=== PATIENT | female | born 1940 | race Caucasian/White ===

== ENCOUNTER 2017-09-29 22:22 | Inpatient (IN) | payer MEDICARE, OTHER ==
[~2017-09-29] VITALS: Ht 172.7 cm; Wt 97.5 kg
[~2017-09-29 22:22] MED LIST: AMARYL2 M1 PO; AMBIEN 10 MG TA10 MG PO; AMBIEN 5 MG TABL5 M1 PO; AMLODIPINE; AMLODIPINE PO; ATIVAN0.5 MG PO; CALCIUM 600 +1 EAC1 PO; CARAFATE 1 GM TA1 G1 PO; CIPRO500 MG PO; CLORAZEPATE D3.75 M1 PO; COLACE100 MG PO; COMPAZINE5 MG PO; CYMBALTA30 MG PO; DEPAKOTE 250MG250 M1 PO; DIPHENHIST50 MG PO; DIVALPROEX SOD250 M3 PO; IRON325 PO; LANTUS100 UNIT/M SUBQ; LANTUSSOLASTAR SC; LASIX 40 MG TAB40 M1 PO; LIBRAX CAPSULE1 EACH PO; LISINOPRIL10 MG PO; LOPRESSOR 50 MG50 M1 PO; LOPRESSOR50 MG PO; LYRICA 75 MG CA75 MG PO; MAG-OX 400 TAB400 M1 PO; MAG-OX 400 TAB400 MG PO; MAGNESIUM400 MG PO; METAMUCIL PAC1 UDPKT PO; METOCLOPRA10 MG/101 PO; METOCLOPRAMIDE10 MG PO; METOPROLOL; MILK OF MA2400 MG/10 PO; MIRALAX255 GM PO; MORPHINE SULFAT15 M3 PO; MS CONTIN15 MG PO; MS CONTIN30 MG PO; MULTIVITAMINS1 EAC7 PO; NEURONTIN 400400 M1; NEURONTIN 400M400 M2 PO; NEURONTIN600 MG PO; NORCO 5-325 TA1 EACH PO; NORVASC 5 MG TAB5 MG PO; NORVASC5 MG PO; NYSTATIN 1100000 U/M PO; NYSTATIN PO; OMEPRAZOLE40 MG PO; ONDANSETRON HCL4 M2 PO; OXYCODONE HCL15 MG PO; PERCOCET PO; PHENERGAN 25 MG25 M1 PO; POTASSIUM20 PO; PRINIVIL20 MG PO; REGLAN 10 MG TA10 M1; REGLAN 10 MG TA10 M1 PO; REGLAN 10 MG TA10 MG PO; ROBITUSSIN100 MG/53 PO; TOPROL XL100 MG PO; TRAMADOL 50 MG50 MG PO; TRANSDERM-SCO1 PATC1 TD; TRANSDERM-SCO1 PATCH TD; TRILEPTAL150 MG PO; VIOKASE; ZOFRAN ODT4 MG PO; ZOFRAN4 MG PO
[2017-09-29 22:24] VITALS: BP 129/91
[2017-09-29 22:56] LABS: HEMATOCRIT 41.5 % (37.0-47.0); HEMOGLOBIN 13.3 gm/dL (12.0-15.0); MCH 28.5 pg (26.0-34.0); MCHC 32.1 g/dL (28.0-37.0); MCV 88.8 fL (80.0-100.0); MPV 7.1 fl. (7.2-11.1); NUCLEATED RBCS 0 /100WBC; PLATELET COUNT* 409 thou/uL (150-400); RBC 4.68 mil/uL (4.20-5.00); RDW-CV 15.5 % (10.5-14.5); WBC 16.8 thou/uL (4.0-11.0)
[2017-09-29 23:03] LABS: URINE BILIRUBIN NEGATIVE (Negative); URINE BLOOD NEGATIVE (Negative); URINE CLARITY CLEAR; URINE COLOR YELLOW; URINE GLUCOSE-RANDOM NEGATIVE (Negative); URINE KETONES NEGATIVE (Negative); URINE LEUKOCYTES-REFLEX NEGATIVE (Negative); URINE NITRITE-REFLEX NEGATIVE (Negative); URINE PROTEIN TRACE (Negative); URINE SPECIFIC GRAVITY 1.015 (1.005-1.030); URINE UROBILINOGEN 0.2 E.U./dl (0.2-1.0)
[2017-09-29 23:08] LABS: ANION GAP 12 mmol/L (7-16); BUN 17 mg/dL (7-18); CALCIUM 8.9 mg/dL (8.5-10.1); CHLORIDE 103 mmol/L (98-107); CO2 25 mmol/L (21-32); GLUCOSE 207 mg/dL (70-99); SODIUM 140 mmol/L (136-145)
[2017-09-29 23:11] LABS: POTASSIUM 2.2 mmol/L (3.5-5.1)
[2017-09-29 23:20] LABS: ALBUMIN 3.3 g/dL (3.4-5.0); ALKALINE PHOSPHATASE 111 U/L (46-116); LIPASE 85 U/L (73-393); SGOT 10 U/L (15-37); SGPT 12 U/L (30-65); TOTAL BILIRUBIN 0.1 mg/dL (<0.1-1.0); TROPONIN-I LEVEL <0.06 ng/mL (<0.06)
[2017-09-29 23:34] LABS: ABSOLUTE LYMPHOCYTES 3.7 thou/uL (0.8-5.3); ABSOLUTE MONOCYTES 1.7 thou/uL (0.0-1.2); ABSOLUTE NEUTROPHILS 11.4 thou/uL (1.6-8.1); ANISOCYTOSIS 1+; PLATELET ESTIMATE INCREASED; POIKILOCYTOSIS 1+
[2017-09-29 23:35] LABS: TOXIC GRANULATION 1+
[2017-09-30] VITALS (12 sets, daily range): BP systolic 95–166; BP diastolic 49–76
[2017-09-30 04:47] LABS: ABSOLUTE EOSINOPHILS 0.1 thou/uL (0.0-0.7); ABSOLUTE LYMPHOCYTES 2.6 thou/uL (0.8-5.3); ABSOLUTE MONOCYTES 1.2 thou/uL (0.0-1.2); ABSOLUTE NEUTROPHILS 12.5 thou/uL (1.6-8.1); BASOPHILS 0.3 %; EOSINOPHILS 0.6 %; HEMATOCRIT 38.2 % (37.0-47.0); HEMOGLOBIN 12.1 gm/dL (12.0-15.0); MCH 28.4 pg (26.0-34.0); MCHC 31.6 g/dL (28.0-37.0); MONOCYTES 7.5 %; MPV 7.3 fl. (7.2-11.1); NUCLEATED RBCS 0 /100WBC; PLATELET COUNT* 398 thou/uL (150-400); POLYS 75.6 %; RBC 4.24 mil/uL (4.20-5.00); RDW-CV 15.8 % (10.5-14.5); WBC 16.5 thou/uL (4.0-11.0)
--- NOTE | 2017-09-30 05:00 | NUR ---
Son notified of pts being in hospital, given grandsons number to call. Message left.
[2017-09-30 05:17] LABS: CALCIUM 8.1 mg/dL (8.5-10.1); CREATININE 0.9 mg/dL (0.6-1.3); TOTAL BILIRUBIN 0.1 mg/dL (<0.1-1.0)
[2017-09-30 05:26] LABS: POTASSIUM 2.8 mmol/L (3.5-5.1)
--- NOTE | 2017-09-30 05:29 | NUR ---
GERARD DIANA (SON) [phone] JACK DIANA (GRANDSON) [phone]
[2017-09-30 10:12] LABS: BE -12.2 mmol/L (-2 to +3); HCO3 15.4 mmol/L (22.0-26.0); PCO2 41.3 mmHg (35.0-45.0); PO2 153.6 mmHg (75.0-100.0); pH 7.189 (7.340-7.450)
[2017-09-30 13:18] LABS: BE -11.1 mmol/L (-2 to +3); HCO3 14.3 mmol/L (22.0-26.0); PCO2 30.7 mmHg (35.0-45.0)
[2017-09-30 13:20] LABS: PO2 140.5 mmHg (75.0-100.0); pH 7.286 (7.340-7.450)
--- NOTE | 2017-09-30 17:08 | 2DMMODE ---
[place] [address] 2 D/M-MODE ECHOCARDIOGRAM Name: LEBRONBROOK Room: [facility]#: [id number] Admission: 09/30/17 Attend Phys: Yoseph Fritz Discharge: Date of : 44 Date of Service: 09/30/17 1708 Report #: [id number] THIS REPORT FOR: //name// APPROVED REPORT Study performed: 09/30/2017 15:53:21 EXAM: Comprehensive 2D, Doppler, and color-flow Echocardiogram Patient Location: In-Patient Room #: [facility] Status: routine BSA: 2.04 HR: 83 bpm BP: 105/57 mmHg Rhythm: NSR Other Information Technically limited study due to post operative dressings, body habitus, inability to position patient, patient on ventilator. Indications Bradycardia 2D Dimensions LVEF(%): 79.43 (>50%) IVSd: 12.20 (7-11mm) LVOT Diam: 19.91 (18-24mm) LVDd: 36.00 mm PWd: 9.63 (7-11mm) Ascending Ao: 30.73 (22-36mm) LVDs: 19.02 (25-40mm) Aortic Root: 31.67 mm Ortiz's LVEF: 79.43 % Aortic Valve AoV Peak Slava.: 1.73 m/s AO Peak Gr.: 11.96 mmHg LVOT Max P.33 mmHg AO Mean Gr.: 7.27 mmHg LVOT Mean P.72 mmHg LVOT Max V: 1.61 m/s AO V2 VTI: 26.78 cm LVOT Mean V: 1.12 m/s EMILIANO (VTI): 3.19 cm2 LVOT V1 VTI: 27.45 cm Pulmonary Valve PV Peak Slava.: 0.94 m/s PV Peak Gr.: 3.52 [place] [address] 2 D/M-MODE ECHOCARDIOGRAM Name: LEBRONBROOK J Room: [address] IN .R.#: [id number] Admission: 09/30/17 Attend Phys: Yoseph Fritz Discharge: Date of : 44 Date of Service: 09/30/17 1708 Report #: [id number] Peak Gr.: 3.82 mmHg Left Ventricle The left ventricle is normal size. There is normal LV segmental wall motion. There is normal left ventricular wall thickness. Left ventricular systolic function is normal. LVEF is 65-70%. Grade I - abnormal relaxation pattern. Right Ventricle Right ventricle is moderately dilated. The right ventricular systolic function is normal. Atria The left atrium size is normal. Right atrium is moderately dilated. Aortic Valve The aortic valve is normal in structure. No aortic regurgitation is present. There is no aortic valvular stenosis. Mitral Valve The mitral valve is normal in structure. There is no mitral valve regurgitation noted. No evidence of mitral valve stenosis. Tricuspid Valve The tricuspid valve is normal in structure. Trace tricuspid regurgitation. Pulmonic Valve The pulmonary valve is normal in structure. There is no pulmonic valvular regurgitation. Great Vessels The aortic root is normal in size. IVC is normal in size and collapses with >50% inspiration Pericardium There is no pericardial effusion. <Conclusion> The left ventricle is normal size. There is normal left ventricular wall thickness. Left ventricular systolic function is normal. LVEF is 65-70%. Grade I - [place] [address] 2 D/M-MODE ECHOCARDIOGRAM Name: BROOK DIANA Room: [address] IN [facility]#: [id number] Admission: 09/30/17 Attend Phys: Yoseph Fritz Discharge: Date of : 44 Date of Service: 09/30/171707 Report #: [id number] Right atrium is moderately dilated. Right ventricle is moderately dilated. <ELECTRONICALLY SIGNED> By: Jaciel Padilla MD, [facility] 09/30/171707 07 1708 Jaciel Padilla MD, FACC /INF
--- NOTE | 2017-09-30 17:29 | EKG ---
[place] [address] ELECTROCARDIOGRAM REPORT Name: BROOK DIANA Room: [address] ADM IN .R.#: [id number] Admission: 09/30/17 Attend Phys: Luis Gant Discharge: Date of : 44 Report #: [id number] THIS REPORT FOR: //name// [facility] ED Test Date: 2017-09-29 Test Time: 22:54:25 Pat Name: BROOKRICHIE DIANA Department: Room: [facility] Gender: F Steam Oven Operator: PRUDENCE Cerna : 1940 Requested By: Arpita Kirkpatrick Order Number: [id number] MD: Jaciel Padilla Measurements Intervals [place] Rate: 73 P: 35 MD: 151 QRS: -3 QRSD: 94 T: 179 QT: 371 QTc: 409 Interpretive Statements Sinus rhythm RSR' in V1 or V2, right VCD or RVH LVH with secondary repolarization abnormality Compared to ECG 06/03/2017 06:54:30 Right ventricular hypertrophy now present RSR' in V1 or V2 now present Left ventricular hypertrophy now present Electronically Signed On 09-30-2017 17:28:59 RESCUE BOAT OPERATOR by Jaciel Padilla [email or web address] <ELECTRONICALLY SIGNED> By: Jaciel Padilla MD, FACC 09/30/17 1728 [id number] Jaciel Padilla MD, FACC /EPI
--- NOTE | 2017-09-30 17:29 | EKG ---
[place] [address] ELECTROCARDIOGRAM REPORT Name: BROOK DIANA Room: [address] ADM IN .R.#: [id number] Admission: 09/30/17 Attend Phys: Luis Gant Discharge: Date of : 44 Report #: [id number] THIS REPORT FOR: //name// [facility] ED Test Date: 2017-09-30 Test Time: 02:03:47 Pat Name: BROOK DIANA Department: Room: [facility] Gender: F It Field Technician: PRUDENCE Cerna : 1940 Requested By: Arpita Kirkpatrick Order Number: [id number] Deric MD: Jaciel Padilla Measurements Intervals [place] Rate: 79 P: 1 HI: 137 QRS: -3 QRSD: 81 T: 183 QT: 403 QTc: 463 Interpretive Statements Sinus rhythm RSR' in V1 or V2, probably normal variant LVH with secondary repolarization abnormality Compared to ECG 06/03/2017 06:54:30 RSR' in V1 or V2 now present Left ventricular hypertrophy now present Electronically Signed On 09-30-2017 17:29:47 APPRENTICESHIP TRAINING REPRESENTATIVE by Jaciel Padilla [email or web address] <ELECTRONICALLY SIGNED> By: Jaciel Padilla MD, FAC 09/30/17 1729 2 2 Jaciel Padilla MD, [facility] /EPI
[2017-09-30 17:30] LABS: CALCIUM 7.6 mg/dL (8.5-10.1); CREATININE 1.2 mg/dL (0.6-1.3); MAGNESIUM 1.1 mg/dL (1.8-2.4)
[2017-09-30 17:33] LABS: POTASSIUM 2.8 mmol/L (3.5-5.1)
--- NOTE | 2017-09-30 19:20 | NUR ---
PT RESTING WELL ON VENT. FIO2 TITRATED TO 25%.ABD BINDER EMIANS IN PLACE WITH NO SHADOWING NOTED. POTASSIUM AND MAGNESIUM BEING REPLACED PER PROTOCOL. PT TURNED THROUGH SHIFT. FREQUENT ORAL CARE GIVEN.PT IS PROGRESSING TOWARDS GOALS.SHIFT REPORT GIVEN.
[2017-10-01] VITALS (11 sets, daily range): BP systolic 98–202; BP diastolic 39–111
[2017-10-01 04:44] LABS: ABSOLUTE LYMPHOCYTES 3.2 thou/uL (0.8-5.3); ABSOLUTE MONOCYTES 1.6 thou/uL (0.0-1.2); ABSOLUTE NEUTROPHILS 13.9 thou/uL (1.6-8.1); BASOPHILS 0.2 %; EOSINOPHILS 0.2 %; HEMATOCRIT 36.8 % (37.0-47.0); HEMOGLOBIN 11.5 gm/dL (12.0-15.0); LYMPHOCYTES 17.1 %; MCH 28.7 pg (26.0-34.0); MCHC 31.3 g/dL (28.0-37.0); MCV 91.5 fL (80.0-100.0); MONOCYTES 8.4 %; MPV 7.7 fl. (7.2-11.1); NUCLEATED RBCS 0 /100WBC; PLATELET COUNT* 327 thou/uL (150-400); POLYS 74.1 %; RBC 4.02 mil/uL (4.20-5.00); RDW-CV 15.8 % (10.5-14.5); WBC 18.8 thou/uL (4.0-11.0)
[2017-10-01 05:08] LABS: CALCIUM 7.8 mg/dL (8.5-10.1)
[2017-10-01 05:27] LABS: POTASSIUM 4.3 mmol/L (3.5-5.1)
--- NOTE | 2017-10-01 06:36 | NUR ---
PATIENT SLOWLY PROGRESSING TOWARDS GOALS. ON PROPOFOL GTT. BP HAVE BEEN SOFT. NSR. RR, HR WNL. PT IS RESPONSIVE TO NAME, DOES OPEN EYES. ELECTROLYTE REPLACEMENT COMPLETED. WEANING TRIAL IN A.M POSSIBLE EXTUBATION TODAY. WILL CONTINUE TO MONITOR CLOSELY.
[2017-10-01 07:19] LABS: BE -8.5 mmol/L (-2 to +3); PCO2 29.9 mmHg (35.0-45.0); PO2 88.4 mmHg (75.0-100.0); pH 7.345 (7.340-7.450)
--- NOTE | 2017-10-01 10:30 | NUR ---
PT ADMITTED TO ICU ON VENT AFTER EMERGENCY SURGERY YESTERDAY MORNING. PT REMAINS ON VENT, DIDN'T DO WELL WITH WEANING TRIAL THIS MORNING SECONDARY TO PAIN. WILL TRY ANOTHER WEANING TRIAL LATER TODAY. NO FAMILY HERE AT THIS TIME, NOT SURE AOBUT PT'S LIVING SITUATION.
--- NOTE | 2017-10-01 11:22 | OP ---
[facility] [address] [place] [address] OPERATIVE REPORT Name: LEBRONBROOK Room: [address] IN M.R.#: [id number] Admission: 09/30/17 Attend Phys: Luis Gant Discharge: Date of : 44 Report #: [id number] THIS REPORT FOR: //name// CC: Bon Fritz DATE OF SERVICE: 09/30/2017 PREOPERATIVE DIAGNOSIS: Internal hernia. POSTOPERATIVE DIAGNOSIS: Internal hernia. PROCEDURE: 1. Exploratory laparotomy. 2. Reduction of internal hernia. 3. Extensive lysis of adhesions for 45 minutes. SURGEON: Tisha Alexandra MD. INSPECTOR WATCH TRAIN: 1. Joseph Blanco DO. 2. Gregory Pimentel DO. ESTIMATED BLOOD LOSS: 10 mL. COMPLICATIONS: None. FINDINGS: Internal hernia of small bowel beneath antecolic gastrojejunostomy limb. SPECIMENS: None. COMPLICATIONS: None. ANESTHESIA: GET. DESCRIPTION OF PROCEDURE: Fully informed consent obtained preoperatively. Full discussion of risks, benefits, alternatives, questions answered. The patient was alert and oriented and able to understand informed consent in full. She understood all risks up to and including catastrophic complications up to including . She was taken to the operating room. Timeout was performed with all in agreement. Began with midline laparotomy through prior laparotomy incision above the umbilicus and used cautery to dissect down through skin and subcutaneous tissue and fat. Split in the fascia was elevated. I entered sharply into the abdomen. There was no injury down the underlying bowel. The [address] [place] [address] OPERATIVE REPORT Name: LEBRONBROOK J Room: [facility]- ADM IN M.R.#: [id number] Admission: 09/30/17 Attend Phys: Luis Gant Discharge: Date of : 44 Report #: [id number] fascia was extended cranially and inferiorly. Of note, there was a significant amount of adhesions. Using a combination of Metzenbaum scissors and cautery, adhesions were taken down from the anterior abdominal wall to the bowel and interloop adhesions for approximately 45 minutes. Following this, there did appear to be an area of small bowel, which had twisted under the gastrojejunostomy limb from her previous procedure and this was reduced out from this mesenteric defect. I inspected the bowel closely and all appeared viable. Next, I used 3-0 Vicryl to approximate the small bowel down to the retroperitoneum as well as to adjacent small bowel using serosal bite to close the mesenteric defect under the gastrojejunostomy. I next ran the bowel from this area all the way up to the cecum. Bowel appeared to be healthy and viable. There was no evidence of any serosal injuries or ischemia, was replaced back in the abdomen and I saw no other alternative pathologies. Once a separate film was placed middle of the wound, an 0 PDS was brought from cranial and caudal portions of the incision and brought securely in the middle of the abdomen. Wound was irrigated. A 3-0 Vicryl was used to approximate deep dermal. Staple used to close the skin. Sterile dressings applied. Sponge, needle, instrument counts correct x 2. <ELECTRONICALLY SIGNED> By: Tisha Alexandra MD 10/01/17 1122 [id number] Alexandra MD /nt
[2017-10-01 11:47] LABS: ALBUMIN 2.3 g/dL (3.4-5.0); POTASSIUM 4.4 mmol/L (3.5-5.1); TOTAL BILIRUBIN 0.3 mg/dL (<0.1-1.0); TOTAL PROTEIN 5.8 g/dL (6.4-8.2)
[2017-10-01 13:54] LABS: HCO3 16.3 mmol/L (22.0-26.0); PCO2 33.3 mmHg (35.0-45.0); PO2 95.6 mmHg (75.0-100.0); pH 7.307 (7.340-7.450)
--- NOTE | 2017-10-01 14:21 | NUR ---
1400 PT EXTUBATED AND PLACED ON 6L NC.
--- NOTE | 2017-10-01 14:22 | NUR ---
DR ROLAND AT BEDSIDE FOR PLACEMENT OF CENTRAL LINE.
[2017-10-01] MEDS ORDERED: ACETAMINOPHEN650 M5 RECTAL (15:01)
[2017-10-01] MEDS ORDERED: ACETYLCYST200 MG/1 M INH (15:03)
[2017-10-01] MEDS ORDERED: ALBUTEROL2.5 MG/31 INH (15:03)
[2017-10-01] MEDS ORDERED: BISACODYL SUPP10 MG RECTAL (15:04)
[2017-10-01] MEDS ORDERED: BROVANA15 MCG/2 M INH (15:06)
[2017-10-01] MEDS ORDERED: CARDIZEM60 MG PER TUBE (15:08)
[2017-10-01] MEDS ORDERED: CLARITIN10 MG PO (15:09)
[2017-10-01] MEDS ORDERED: DEXTROSE 10%-W250 ML IV (15:12)
[2017-10-01] MEDS ORDERED: DUONEB 2.5-0.5 M3 ML INH (15:14)
[2017-10-01] MEDS ORDERED: FERREX 150 PLU1 EAC1 PO (15:16)
[2017-10-01] MEDS ORDERED: GLUCAGON HCL1 MG IM (15:19)
[2017-10-01] MEDS ORDERED: GLUCOTROL5 MG PO (15:20)
[2017-10-01] MEDS ORDERED: HUMALOG100 UNIT/1 SUBQ (15:22)
[2017-10-01] MEDS ORDERED: HYDROCODONE-AP1 EAC6 PO (15:23)
[2017-10-01] MEDS ORDERED: LEVEMIR SUBQ (15:24)
[2017-10-01] MEDS ORDERED: ATORVASTATIN CA40 MG PO (15:26)
[2017-10-01] MEDS ORDERED: MILK OF MA2400 MG/10 PO (15:27)
[2017-10-01] MEDS ORDERED: NITROGLYCERIN0.4 MG SUBLING (15:28)
[2017-10-01] MEDS ORDERED: PREDNISONE 20 M20 MG PER TUBE (15:30)
[2017-10-01] MEDS ORDERED: PHENERGAN 25 MG25 M1 PO (15:32)
[2017-10-01] MEDS ORDERED: PROTONIX40 M1 PO (15:32)
[2017-10-01] MEDS ORDERED: PULMICORT0.5 MG/2 M INH (15:34)
[2017-10-01] MEDS ORDERED: REGLAN10 MG PO (15:35)
[2017-10-01] MEDS ORDERED: SENOKOT8.6 MG PO (15:36)
[2017-10-01] MEDS ORDERED: SINGULAIR 10 MG10 M1 PER TUBE (15:37)
[2017-10-01] MEDS ORDERED: ZOFRAN ODT4 MG DISSOLVE (15:50)
[2017-10-01 18:02] LABS: APTT 32.5 Seconds (25.0-31.3); INR 1.1; PROTIME 11.1 Seconds (9.20-11.50)
--- NOTE | 2017-10-01 18:25 | NUR ---
assessment and vs obtained through out the day. switch operator on and tracing sr. see note for extubation. at 1815 pt became diaphoretic, tachy and bp was high. lung sounds very course. bi pap placed and stat cxr was obtained. will con't to monitor.
--- NOTE | 2017-10-01 18:45 | NUR ---
GAVE BETTE REPORT AT [facility]. PT IS TO GO TO [facility] 408. [facility] WAS NOTIFIED.
--- NOTE | 2017-10-01 20:00 | NUR ---
ASSUMED CARE AT 1900. PATIENT IS ON VENT. FAMILY IN ROOM. IS NOW COMFORT CARE. WAITING ON REST OF FAMILY TO ARRIVE BEFORE WE EXTUBATE. FAMILY HAS NO CURRENT CONCERNS AT THIS TIME. WILL CONTINUE TO WORK WITH FAMILY AND PROVIDE MAXIMUM COMFORT FOR PATIENT.
[2017-10-02] VITALS (8 sets, daily range): BP systolic 107–142; BP diastolic 42–89
[2017-10-02 05:38] LABS: HEMATOCRIT 31.1 % (37.0-47.0); HEMOGLOBIN 9.9 gm/dL (12.0-15.0); MCH 28.7 pg (26.0-34.0); MCHC 31.9 g/dL (28.0-37.0); MPV 7.9 fl. (7.2-11.1); RBC 3.46 mil/uL (4.20-5.00); RDW-CV 15.6 % (10.5-14.5); WBC 15.7 thou/uL (4.0-11.0)
--- NOTE | 2017-10-02 05:42 | NUR ---
PATIENT SLOWLY PROGRESSING TOWARDS GOALS. PATIENT IS ORIENT TO SELF, SITUATION, PLACE, GETS CONFUSED WITH DAY AND MONTH BUT AFTER GIVEN TIME PT REORIENTS SELF. PT ON BIPAP D/T DECREASE IN O2. TOLERATED HIGH FLOW NC LAST NIGHT FOR A WHILE PLACED BACK ON WHEN SHE WAS READY TO SLEEP. PT RECEIVED LASIX LAST NIGHT PER DOC ORDERS UO WAS 2150. SOUNDS LESS COARSE, EDEMA IN FEET HAS DECREASED. PT IS CURRENTLY SLEEPING NO CONCERNS AT THE MOMENT. CALL LIGHT WITHIN REACH, FALL PRECAUTIONS IN PLACE, BED TO LOWEST POSITION.
--- NOTE | 2017-10-02 17:51 | NUR ---
PATIENT PROGRESSING TOWARDS GOALS. O2 TITRATED TO 2L NC, SAT AT 100%. COULD POTENTIALLY COME OFF O2, BUT LEFT ON FOR COMFORT PATIENT FEELS IF SHE CANNOT BREATHE R/T CONGESTION IN THROAT. ENCOURAGED TO COUGH AND DEEP BREATHE MULTIPLE TIMES THIS SHIFT. HAVING SOME PRODUCTIVE CLEAR/THIN SPUTUM. OTHER VITALS REMAINED 2NL. TRACED NSR ON LOCK MASTER THROUGHOUT SHIFT. PATIENT UP IN CHAIR X1 FOR DURATION OF [address] BINDER [address] PL[address] WHEN TRANSFERING. DID TRANSFER WITH MINIMAL ASSIST, BUT COMPLAINS OF INCREASED PAIN. PAIN RATED AT 7-10 THROUGHOUT SHIFT CONSISTANTLY, EVEN WHEN APPEARING CALM. PATIENT HAS VERY ANXIOUS/FUSSY BEHAVIOR CONSISTANTLY, APPEARS TO BE BASELINE. APOLOGIZES FREQUENTLY WHEN NOT WARRENTED. RICHARD REMAINS IN PLACE TO DEPENDENT DRAINAGE. REFER TO I&O DOCUMENTATION. SALINE LOCKED RIGHT IJ CENTRAL LINE. FLUSHES IN ALL THREE PORTS ADEQUATELY. PERIPHERALS DC'D BEFORE TRANSFER UPSTAIRS. ALL BELONGINGS TAKEN WITH PATIENT INCLUDING CLOTHES AND THINGS ACQUIRED IN HOSPITAL. PATIENT TRANSFERED BY WHEELCHAIR WITH TWO M/S INTERIOR DESIGN PROJECT MANAGER AT 1750.
--- NOTE | 2017-10-02 18:36 | NUR ---
PATIENT TRANSFERRED UP FROM THE ICU AROUND 1800 IN STABLE CONDITION. PATIENT ORIENTED TO ROOM. BED ALARM ON, WILL CONTINUE TO MONITOR.
[2017-10-03 03:59] VITALS: BP 168/72
[2017-10-03 04:39] LABS: ABSOLUTE BASOPHILS 0.3 thou/uL (0.0-0.2); ABSOLUTE EOSINOPHILS 0.3 thou/uL (0.0-0.7); ABSOLUTE LYMPHOCYTES 2.6 thou/uL (0.8-5.3); ABSOLUTE MONOCYTES 0.7 thou/uL (0.0-1.2); ABSOLUTE NEUTROPHILS 7.2 thou/uL (1.6-8.1); BASOPHILS 2.6 %; EOSINOPHILS 2.3 %; HEMATOCRIT 30.5 % (37.0-47.0); HEMOGLOBIN 9.7 gm/dL (12.0-15.0); LYMPHOCYTES 23.9 %; MCH 28.6 pg (26.0-34.0); MCHC 31.8 g/dL (28.0-37.0); MCV 89.9 fL (80.0-100.0); MONOCYTES 5.9 %; MPV 8.2 fl. (7.2-11.1); NUCLEATED RBCS 0 /100WBC; PLATELET COUNT* 265 thou/uL (150-400); POLYS 65.3 %; RDW-CV 15.6 % (10.5-14.5)
[2017-10-03 04:48] LABS: CALCIUM 8.1 mg/dL (8.5-10.1); CREATININE 0.6 mg/dL (0.6-1.3)
--- NOTE | 2017-10-03 06:21 | NUR ---
PT SLEPT ON AND OFF THROUGH THE NIGHT. ASSESSMENT DOCUMENTED. MEDS GIVEN PER E-NOV. PT REPORTED ABDOMINAL PAIN. PAIN MEDS GIVEN PER E-MAR. TELE MONITOR IN PLACE. READING SR. IJ FLUSHES AND DRAWS. NEW INTERDRY PLACED. WILL CONTINUE TO MONITOR.
[2017-10-03 08:00] VITALS: BP 158/74
[2017-10-03 12:13] VITALS: BP 128/83
[2017-10-03 16:01] VITALS: BP 192/97
[2017-10-03 16:17] VITALS: BP 177/74
[2017-10-03 20:00] VITALS: BP 176/75
--- NOTE | 2017-10-03 20:02 | NUR ---
PATIENT RESTING IN BED. PATIENT HAS HAD COMPAINTS OF ABDOMINAL PAIN TREATED ADEQUATELY WITH HYDROCODONE. PATIENT HAS HAD COMPLAINTS OF NAUSEA TREATED ADEQUATLY WITH ZOFRAN. PATIENT DID REFUSE DINNER THIS EVENING. PATIENT ENCOURAGED TO TAKE MORE PO FLUIDS. MIDLINE INCISION IS APPROXIMATED WELL WITH NO DRAINAGE, DRESSING CHANGED THIS AM. PATIENT DENIES ANY NEEDS AT THIS TIME. WILL CONTINUE TO MONITOR.
[2017-10-04 00:06] VITALS: BP 167/77
[2017-10-04 01:45] LABS: ABSOLUTE EOSINOPHILS 0.2 thou/uL (0.0-0.7); ABSOLUTE LYMPHOCYTES 2.3 thou/uL (0.8-5.3); ABSOLUTE MONOCYTES 0.6 thou/uL (0.0-1.2); BASOPHILS 0.5 %; EOSINOPHILS 2.3 %; HEMATOCRIT 33.3 % (37.0-47.0); HEMOGLOBIN 10.8 gm/dL (12.0-15.0); MCH 28.8 pg (26.0-34.0); MCHC 32.4 g/dL (28.0-37.0); MCV 89.1 fL (80.0-100.0); MONOCYTES 6.3 %; MPV 7.7 fl. (7.2-11.1); NUCLEATED RBCS 0 /100WBC; PLATELET COUNT* 284 thou/uL (150-400); POLYS 65.9 %; RBC 3.74 mil/uL (4.20-5.00); RDW-CV 15.6 % (10.5-14.5); WBC 9.1 thou/uL (4.0-11.0)
[2017-10-04 02:10] LABS: CALCIUM 8.7 mg/dL (8.5-10.1); CREATININE 0.5 mg/dL (0.6-1.3); POTASSIUM 3.9 mmol/L (3.5-5.1)
[2017-10-04 04:34] VITALS: BP 186/86
--- NOTE | 2017-10-04 05:49 | NUR ---
REMAINS ON BEDREST. HAS DRY DRESSING OVER MIDLINE INCISION. REFUSED ABDOMINAL BINDER. REMAINS ON HEART MONITOR. LUNG SOUNDS REMAIN DIMINISHED. HAS RICHARD CATHETER PATENT WITH CLEAR YELLOW URINE. IV PAIN MEDICATION HELPFUL WITH PAIN. NO C/O N/V THIS SHIFT. CALL LIGHT WITHIN REACH.
[2017-10-04 08:15] VITALS: BP 157/93
[2017-10-04 12:00] VITALS: BP 153/92
--- NOTE | 2017-10-04 12:02 | NUR ---
INITIAL ASSESSMENT: Pt evaluated for d/c planning needs. Reviewed chart and spoke with nurse and pt. Pt states she lives alone in house and has good friends who assist with grocery shopping and errands. Pt said she has a walker at home, but she does not use it. Pt said she has been to SNF in the past, and they did not give her the insulin she required, so she will not go to SNF on d/c. Also suggested inpatient rehab, and pt states she will go home on d/c from hospital. Pt said her friend will be able to stay with her on d/c. Will remain available to assist as needed.
[2017-10-04 16:56] VITALS: BP 130/64
--- NOTE | 2017-10-04 17:40 | NUR ---
PATIENT HAS BEEN A/O X 4 THIS SHIFT. CONTINUES ON ELECTROMECHANICAL EQUIPMENT TESTER, TRACING NSR. PATIENT HAS BEEN MEDICATED FOR ABDOMINAL PAIN X 2 WITH ORAL PAIN MEDS. NAUSEATED THROUGHOUT THE SHIFT, RELIEVED WITH IV ZOFRAN. RIGHT IJ PATENT AND ASPIRATES BLOOD EASILY. PATIENT NEEDED MUCH ENCOURAGEMENT TO TURN AND TO GET OUT OF BED THIS SHIFT. PATIENT DID SIT UP IN THE CHAIR FOR LUNCH. PATIENT'S APPETITE POOR THIS SHIFT. PATIENT DID DRINK BOOST THIS AFTERNOON. BLOOD SUGARS MONITORED THIS SHIFT. PATIENT DID WORK WITH PT/OT THIS SHIFT AFTER MUCH ENCOURAGEMENT. PATIENT'S RICHARD PATENT. PATIENT'S MIDLINE INCISION CLEAN, DRY AND INTACT, NO SHADOWING NOTED. REFUSING SCDS. PATIENT LABILE WITH EMOTIONS THIS SHIFT, CAN BE RUDE AND INAPPROPRIATE AT TIMES AND THEN EXTREMELY APOLOGETIC WITH THE STAFF. FALL PRECAUTIONS IN PLACE. HOURLY ROUNDING COMPLETED. CALL LIGHT WITHIN REACH. WILL CONTINUE WITH PLAN OF CARE.
[2017-10-04 19:45] VITALS: BP 125/66
[2017-10-05] VITALS: BP 154/86
[2017-10-05 03:48] VITALS: BP 139/71
[2017-10-05 03:55] LABS: CALCIUM 8.5 mg/dL (8.5-10.1); CREATININE 0.6 mg/dL (0.6-1.3); POTASSIUM 3.9 mmol/L (3.5-5.1)
--- NOTE | 2017-10-05 05:56 | NUR ---
PT SLEPT MOST OF SHIFT. ASSESSMENT DOCUMENTED. MEDS GIVEN PER E-NOV. IJ FLUSHES AND DRAWS. PT KEPT ABDOMINAL BINDER ON THIS SHIFT. PT REPORTED PAIN, PAIN MEDS GIVEN PER E-NOV. PT REPOSITIONED THROUGH NIGHT. NO CONCERNS AT THIS TIME, WILL CONTINUE TO MONITOR.
[2017-10-05 08:00] VITALS: BP 143/72
[2017-10-05 12:00] VITALS: BP 136/73
--- NOTE | 2017-10-05 15:02 | NUR ---
PT UP IN CHAIR WITH SBA USING GAIT BELT. PT DOES NOT WANT TO USE WALKER. PT AGREED TO BATH SITTING IN CHAIR. PT HAS REDNESS AND STRONG YEAST SMELL UNDER BOTH BREASTS AND UNDER PANUS, WORSE ON R THAN L. PT CLEANED WITH SOAP AND WATER, DRIED WITH TOWEL COMPLETELY AND INTERDRY APPLIED TO FOLDS. OPEN SORE AND REDNESS NOTED ON BUTTOCKS, BARRIER CREAM APPLIED. RICHARD REMOVED. PT ENCOURAGED TO BE OOB LONG TOLERATED. BANDAGE TO MIDLINE ABD INCISION CDI. PT CONTINUES TO C/O PAIN, DESPITE PAIN MEDICATIONS GIVEN. ZOFRAN GIVEN FOR NAUSEA. PT RUDE AND AGITATED THIS AM DURING ASSESSMENT, BUT HAS SINCE APOLOGIZED AND BECOMES TEARFUL AND WHIMPERS WHEN NURSE ENTERS ROOM. PT WILL ALSO SMILE AND JOKE WITH NURSE DURING INTERVENTIONS. PT ABLE TO MAKE NEEDS KNOWN, CALL LIGHT IN REACH
[2017-10-05 19:30] VITALS: BP 144/117
[2017-10-06] VITALS: BP 114/61
[2017-10-06 04:00] VITALS: BP 127/63
--- NOTE | 2017-10-06 05:18 | NUR ---
PT SLEPT MOST OF SHIFT. ASSESSMENT DOCUMENTED. MEDS GIVEN PER E-MAR. PT REPORTED PAIN AND NAUSEA. PAIN AND NAUSEA MEDS GIVEN PER E-NOV. IJ PATENT. PT UP TO BSC ONCE THIS SHIFT. NO CONCERNS AT THIS TIME, WILL CONTINUE TO MONITOR.
[2017-10-06 07:40] VITALS: BP 134/68
[2017-10-06 10:32] LABS: ABSOLUTE BASOPHILS 0.1 thou/uL (0.0-0.2); ABSOLUTE EOSINOPHILS 0.2 thou/uL (0.0-0.7); ABSOLUTE LYMPHOCYTES 2.8 thou/uL (0.8-5.3); ABSOLUTE MONOCYTES 0.7 thou/uL (0.0-1.2); BASOPHILS 0.8 %; EOSINOPHILS 2.1 %; HEMATOCRIT 35.2 % (37.0-47.0); HEMOGLOBIN 11.4 gm/dL (12.0-15.0); LYMPHOCYTES 23.6 %; MCH 28.9 pg (26.0-34.0); MCHC 32.5 g/dL (28.0-37.0); MCV 89.1 fL (80.0-100.0); MONOCYTES 5.7 %; MPV 8.1 fl. (7.2-11.1); NUCLEATED RBCS 0 /100WBC; PLATELET COUNT* 303 thou/uL (150-400); POLYS 67.8 %; RBC 3.95 mil/uL (4.20-5.00); RDW-CV 15.1 % (10.5-14.5); WBC 11.8 thou/uL (4.0-11.0)
[2017-10-06 10:38] LABS: CALCIUM 8.5 mg/dL (8.5-10.1); CREATININE 0.6 mg/dL (0.6-1.3); PHOSPHORUS* 3.3 mg/dL (2.5-4.9); POTASSIUM 3.8 mmol/L (3.5-5.1)
[2017-10-06 12:30] VITALS: BP 146/74
[2017-10-06 14:30] VITALS: BP 151/74
--- NOTE | 2017-10-06 16:18 | NUR ---
CONTINUE TO FOLLOW, MET WITH PT. SHE HAS BEEN DECLINING THERAPY BUT STATES SHE WILL TRY TO WORK WITH THEM TOMORROW. STATED THE DR AND HER LUNCH CAME WHEN THERAPY WANTED TO WORK WITH HER. PT INSISTS SHE IS STRONG ENOUGH TO GO HOME AT [place] AND PLANS TO DO THAT. SHE DECLINES DISCUSSING SNF. SHE DIDN'T WANT TO HAVE HH EITHER. ASKED WHO WOULD ASSIST HER AT HOME AND SHE STATED HER FRIEND ROMERO WHO LIVES CLOSEBY. SHE DIDN'T HAVE HER NUMBER. WAS ABLE TO LOCATE ROMERO'S NUMBER AND TALK WITH HER. SHE SPOKE WITH PT OVER THE PHONE AND AFTER THAT PT MORE AGREEABLE TO HAVE AT LEAST HH. PT STATES HER LAST EXPERIENCE WASN'T POSITIVE. OFFERED TO HAVE A REP COME IN TO SEE HER TO DISCUSS SERVICES AND SHE WAS AGREEABLE. WILL HAVE [facility] SEE PT TOMORROW. PT PLEASANT AND COOPERATIVE THIS AFTERNOON. APPRECIATIVE OF ASSIST WITH FINDING HER FRIEND'S NUMBER.
--- NOTE | 2017-10-06 17:11 | NUR ---
PATIENT A&OX4, CAN BECOME ADGITATED EASILY. REFUSING TO WORK WITH THERAPY, ADIMENT ABOUT GOING HOME AFTER DISCHARGE. PATIENT ON ROOM AIR, HAS A RIGHT IJ TRIPPLE LUMEN, DRAWS AND FLUSHES FINE. UP WITH ASSISTX1 WITH GAITBELT, STEADY GAIT, WEAK WITH TRANSFERS. C/O PAIN, MINIMAL TO PARTIAL RELIEF WITH MEDICATION. C/O N/V RELIEF WITH MEDICATION. NO OTHER CONCERNS AT THIS TIME.
[2017-10-07] VITALS: BP 130/52
--- NOTE | 2017-10-07 02:53 | NUR ---
ASSUMED CARE OF PT AT 1900. PT IS ALERT AND ORIENTED. VSS. PERRLA. INCISION ON ABDOMAN IS CLEAN DRY AND INTACT. PT REPORTS ONGOING PAIN. PAIN IS BEING TREATED WITH HYDROCODONE. PT IS IN SINUS RYTHM ON THE TELEMETRY. PT IS RESTING COMFORTABLY IN BED. RESPIRATIONS ARE EVEN AND NONLABORED. WILL CONTINUE TO MONITOR PT.
[2017-10-07 04:00] VITALS: BP 148/67
[2017-10-07 04:16] LABS: HEMATOCRIT 32.5 % (37.0-47.0); HEMOGLOBIN 10.5 gm/dL (12.0-15.0); MCHC 32.5 g/dL (28.0-37.0); MCV 89.4 fL (80.0-100.0); MPV 8.1 fl. (7.2-11.1); RBC 3.63 mil/uL (4.20-5.00); RDW-CV 15.5 % (10.5-14.5); WBC 11.1 thou/uL (4.0-11.0)
[2017-10-07 04:23] LABS: CALCIUM 8.3 mg/dL (8.5-10.1); CREATININE 0.7 mg/dL (0.6-1.3); MAGNESIUM 1.3 mg/dL (1.8-2.4); POTASSIUM 3.6 mmol/L (3.5-5.1)
[2017-10-07 07:55] VITALS: BP 144/81
--- NOTE | 2017-10-07 10:37 | NUR ---
WOUND CARE NOTE: CONSULT RECEIVED FOR AN ULCER NOTED NEAR GLUTEAL FOLD. PATIENT PRESENTS WITH 2 AREAS OF BREAKDOWN ERICA-RECTALLY ON THE RIGHT BUTTOCK. DISTAL MOST WOUND APPEARS A CLUSTER OF SMALL ULCERATIONS WITH PALE, YELLOW CENTERS. ERICA-WOUND WITH BLANCHABLE REDNESS. MORE PROXIMAL WOUND IS DRY, SCABBED, RED. ERIAC-WOUND WITH BLANCHABLE REDNESS. PATIENT IS INCONTINENT OF URINE. ASSISTED TOUCHER UP WITH PLACING NEW LINENS AND CHUX. AREAS ARE BOTH APPROXIMATELY 1X1X0.1. BOTH WOUNDS ARE PARTIAL THICKNESS, MAY BE RELATED TO CANDIDIA. PATIENT DOES HAVE OTHER CANDIDIA RASHES (UNDER BREASTS AND ABDOMINAL FOLD) NO PRESSURE ULCERS NOTED. RECOMMEND TURN Q2 HOURS, PATIENT IS AT RISK FOR DEVELOPING PRESSURE ULCERS FREQUENT MONITORING FOR INCONTINENCE. LIMIT LAYERS OF LINEN UNDER PATIENT ANTIFUNGAL OINTMENT TO SITES
[2017-10-07 12:20] VITALS: BP 133/63
--- NOTE | 2017-10-07 14:45 | NUR ---
ZACH FROM [facility] HERE TO VISIT WITH PT. PT OPEN TO HAVING HH AT [place]
[2017-10-07 15:34] VITALS: BP 139/75
--- NOTE | 2017-10-07 17:17 | NUR ---
PATIENT RESTING IN BED. PATIENT HAS COMPLAINTS OF ABDOMINAL PAIN TREATED PARTIALLY WITH MEDICATION. PATIENT HAS POOR APPETITE, BOOST GIVEN. PATIENT HAS NOT HAD BOWEL MOVEMENT TODAY. PERIPHERAL ACCESS ATTEMPTED X 2 WITHOUT SUCCESS AND PATIENT REFUSED IN FURTHER ATTEMPTS, IJ LEFT IN PLACE. MAGNESIUM REPLACED PER PROTOCOL. PATIENT DENIES ANY NEEDS AT THIS TIME. CALL LIGHT WITHIN REACH. WILL CONITNUE TO MONITOR.
[2017-10-07 20:00] VITALS: BP 130/59
[2017-10-08 00:07] VITALS: BP 137/65
[2017-10-08 04:13] VITALS: BP 140/75
[2017-10-08 08:15] VITALS: BP 133/76
--- NOTE | 2017-10-08 13:39 | NUR ---
Nutrition: Pt assessed for LOS. Admitted with sigmoid diverticulosis. She is on fiber restricted diet. Per RN, pt is not eating much. She refuses Boost supplements. RD will order Magic Cup ice cream for pt to try. Pt does like sherbet. +BM x2. She did refuse BKFST today. Wt: 215#. Albumin 2.3, prealb 12.7, BG 151-138. Severely depleted visceral protein stores, poor po intake. Pt appears at mild to moderate nutrition risk. Inadequate oral intake related to poor appetite as evidenced by provisions not meeting needs. Supplement ordered, offer sherbet as well. GOAL: >60% of meals/supplements consumed. Will follow up 10/13/17.
--- NOTE | 2017-10-08 15:01 | NUR ---
CONTINUE TO FOLLOW, ORDERS NOTED ON CHART FOR DC BUT DISCUSSED WITH NURSE AND SHE STATED DR SAID PT MAY BE HERE TILL WEDNESDAY. MET WITH PT, SHE STATED SHE WAS FEELING 'BETTER' THAT SHE ATE A SANDWICH AND WALKED SOME IN HER ROOM. ASKED HOW COULD ASSIST WITH DC PLAN HOME STATED PT SAID SHE NEEDED TO GET GROCERIES AND MEDS FILLED. PT STATED THERE WERE 2 'KIDS' AT HER [facility] THAT COULD HELP HER BUT NOT TILL WEDNESDAY. PT NOT ABLE TO STATE HOW SHE WOULD CONTACT THEM, ADMITTED SHE DIDN'T HAVE PHONE NUMBERS. OFFERED TO CONTACT HER FRIEND/ROMERO AGAIN AND SHE WAS AGREEABLE. SPOKE WITH HER FRIEND ROMERO. ROMERO AGAIN ENCOURAGED PT TO CONSIDER SNF AND GAVE CM GRANDBRIDGET'S NUMBER. ROMERO ALSO STATED THAT SHE WAS STILL ILL AND NOT ABLE TO ASSIST PT. RELAYED THAT TO PT AND SHE BECAME UPSET STATING THE DR SAID 'I CAN STAY TILL WEDNESDAY AND YOU ARE TELLING ME WHAT TO DO.' 'GET OUT.' ATTEMPTS TO RESOLVE ISSUES UNSUCCESSFUL. DID LEAVE MESSAGE FOR PT'S SON AND GRANDSON. KANDACE/JACK CALLED BACK AND STATED HE WOULD CALL PT AND SEE HOW HE COULD ASSIST BUT TOLD CM THAT THE FAMILY HAD BEEN DEALING WITH THESE 'ISSUES WITH PT FOR YEARS AND THAT THERE WERE MENTAL HEALTH ISSUES WELL.' JACK STATED HE JUST STARTED A NEW JOB AND NOT ABLE TO ASSIST PT EITHER. PT WAS AGREEABLE TO HH WITH [facility]. PT STATED TO CM THAT SHE NEEDED TO CHECK HER BANK ACCOUNT TO SEE IF SHE COULD AFFORD HER MEDICINE, ANYWAY. SHE ASKED CM TO LEAVE HER ALONE.
[2017-10-08 15:15] VITALS: BP 148/84
[2017-10-08 15:17] VITALS: BP 133/76
[2017-10-08 20:25] VITALS: BP 154/76
--- NOTE | 2017-10-08 20:26 | NUR ---
PATIENT RESTING IN BED. PATIENT HAS CONTINUED ABDOMINAL PAIN AND NAUSEA. PATIENT HAS HAD BOWEL MOVEMENTS X 2. PATIENT DID EAT LUNCH BUT REFUSED BREAKFAST AND DINNER. PATIENT DID GET UP TO CHAIR WITH THERAPY THIS AFTERNOON. PATIENT HAD REFUSED THERAPY PRIOR TO THIS. PATIENT IS ALERT AND ORIENTED. PATIENT DENIES ANY NEEDS AT THIS TIME. CALL LIGHT WITHIN REACH. WILL CONTINUE TO MONITOR.
[2017-10-09 00:49] VITALS: BP 150/81
[2017-10-09 04:49] VITALS: BP 150/80
--- NOTE | 2017-10-09 07:31 | NUR ---
PT SLEPT WELL OVERNIGHT AFTER RECEIVING PAIN MED AT HS WITH ZOFRAN. REQUESTING PUDDING SNACK AFTER ZOFRAN AND TOLERATED WELL. HEALING ABD INCISION WITH ABDIFATAH WELL APPROXIMATED. HS ACCUCHECK 127. TELE SR. PO MAG GIVEN. RTLIJ SL. ABLE TO USE CALL LITE AND MAKE NEEDS KNOWN. INCONT URINE OVERNIGHT AND MOD LOOSE LITE BROWN BM. ERICA CARE GIVEN, BARRIER CREAM APPLIED. TURNED AND REPOSITIONED Q2 HOURS AND PRN PT WOULD ALLOW OVERNIGHT. HEALING OPEN AREAS TO BUTTOCKS. TO HAVE ABD XRAY TODAY.
[2017-10-09 08:10] VITALS: BP 147/82
[2017-10-09 13:29] LABS: HEMATOCRIT 32.7 % (37.0-47.0); HEMOGLOBIN 10.9 gm/dL (12.0-15.0); MCH 28.5 pg (26.0-34.0); MCHC 33.5 g/dL (28.0-37.0); MCV 85.1 fL (80.0-100.0); MPV 7.5 fl. (7.2-11.1); RBC 3.84 mil/uL (4.20-5.00); RDW-CV 15.7 % (10.5-14.5); WBC 11.5 thou/uL (4.0-11.0)
[2017-10-09 13:41] LABS: CALCIUM 8.5 mg/dL (8.5-10.1); CREATININE 0.7 mg/dL (0.6-1.3); MAGNESIUM 1.3 mg/dL (1.8-2.4); POTASSIUM 3.8 mmol/L (3.5-5.1)
--- NOTE | 2017-10-09 15:00 | NUR ---
WHEN PT.DISCHARGED,SHE WOULD LIKE TO USE [facility]. [phone]/ [id number]
[2017-10-09 16:00] VITALS: BP 139/63
--- NOTE | 2017-10-09 18:18 | NUR ---
PATIENT HAS BEEN A/O X 4 THIS SHIFT. CAN BE FUSSY AT TIMES. MEDICATED FOR ABDOMINAL PAIN WITH ORAL PAIN MEDS WITH PARTIAL RELIEF. GIVEN ZOFRAN PER REQUEST WITH RELIEF. CONTINUES ON RUNSTITCHING MACHINE OPERATOR, TRACING NSR. PATIENT REFUSED TO GET OUT OF BED THIS SHIFT. EDUCATION PROVIDED ON INCREASING ACTIVITY AND GETTING TO THE CHAIR FOR MEALS, STILL REFUSED. PATIENT TURNED EVERY 2 HOURS AND ANTIFUNGAL CREAM APPLIED TO OPEN AREAS ON BUTTOCKS. PATIENT INCONTINENT OF STOOL AND URINE THIS SHIFT. PATIENT APPETITE REMAINS FAIR, HAS ATTEMPTED TO EAT ALL MEALS THIS SHIFT. MIDLINE INCISION INTACT WITH ABDIFATAH IN PLACE. HOURLY ROUNDING COMPLETED. FALL PRECAUTIONS IN PLACE. CALL LIGHT WITHIN REACH. WILL CONTINUE [facility] PLAN OF CARE.
[2017-10-09 20:12] VITALS: BP 157/76
[2017-10-09 23:21] VITALS: BP 129/61
[2017-10-10 04:09] VITALS: BP 136/70
[2017-10-10 04:52] LABS: HEMATOCRIT 32.7 % (37.0-47.0); HEMOGLOBIN 10.6 gm/dL (12.0-15.0); MCH 28.5 pg (26.0-34.0); MCHC 32.5 g/dL (28.0-37.0); MCV 87.6 fL (80.0-100.0); MPV 7.9 fl. (7.2-11.1); RBC 3.74 mil/uL (4.20-5.00); RDW-CV 15.6 % (10.5-14.5); WBC 9.6 thou/uL (4.0-11.0)
[2017-10-10 05:02] LABS: CALCIUM 8.6 mg/dL (8.5-10.1); CREATININE 0.6 mg/dL (0.6-1.3); MAGNESIUM 1.4 mg/dL (1.8-2.4); POTASSIUM 3.3 mmol/L (3.5-5.1)
--- NOTE | 2017-10-10 06:51 | NUR ---
PT SLEPT ON AND OFF OVERNIGHT. HS ACCUCHECK 202, INSULIN GIVEN. INCONTINENT BOWEL AND BLADDER OVERNIGHT. RECEIVED ZOFRAN TWICE AND PO PAIN MED ONCE OVERNIGHT FOR CO ABD PAIN. ABDIFATAH TO ABD INCISION GREGG AND HEALING. RTLIJ SL. RECEIVED PRN GABAPENTIN AT HS FOR NEUROPATHY. ELECTROLYTE LABS LOW, IV K STARTED THIS MORNING. TELE SR. ATE 1/2 TURKEY SANDWICH AND 1 ORANGE SHERBET AT HS AFTER ZOFRAN GIVEN. ABLE TO USE CALL LITE AND MAKE NEEDS KNOWN. BED ALARM ON FOR SAFETY. PT TURNED AND REPOSITIONED Q2 HOURS PT WOULD ALLOW.
[2017-10-10 07:55] VITALS: BP 108/60
[2017-10-10 16:13] VITALS: BP 142/74
[2017-10-10 19:06] LABS: MAGNESIUM 1.6 mg/dL (1.8-2.4); POTASSIUM 4.2 mmol/L (3.5-5.1)
--- NOTE | 2017-10-10 19:35 | NUR ---
PATIENT HAS BEEN A/O X 4 THIS SHIFT. MEDICATED FOR ABDOMINAL PAIN AND NAUSEA WITH PARTIAL RELIEF. MAGNESIUM AND POTASSIUM BEING REPLACED PER ELECTROLYTE PROTOCOL. PATIENT GIVEN GABAPENTIN PER REQUEST FOR FEET. PATIENT'S APPETITE SLOWLY IMPROVING. PATIENT REFUSED TO WORK WITH PHYSICAL THERAPY X 2 ATTEMPTS TODAY. HAD AGREED TO GET UP TO CHAIR THIS AM THEN REFUSED WHEN ASKED THROUGHOUT THE SHIFT. CENTRAL LINE IN PLACE, UNABLE TO OBTAIN PERIPHERAL IV'S AND REFUSING TO HAVE STAFF ATTEMPT. BLOOD SUGARS NOTED. MIDLINE INCISION INTACT WITH ABDIFATAH AND HEALING. PATIENT REPOSITIONED THIS SHIFT. ANTIFUNGAL CREAM APPLIED TO RIGHT BUTTOCKS, PIC OBTAINED AND HEALING. REFUSING SCDS AND REFUSING TO ELEVATE HEELS, HEELS BLANCHABLE NOT BOGGY. DC PLANNING IN PROCESS. PATIENT STATING SHE HAD DIARRHEA PRIOR TO ADMISSION ON CARPET, STATING SHE'S NOT SURE IT HAS BEEN CLEANED. FALL PRECAUTIONS IN PLACE. HOURLY ROUNDING COMPLETED. CALL LIGHT WITHIN REACH. WILL CONTINUE WITH PLAN OF CARE.
[2017-10-10 20:30] VITALS: BP 138/53
[2017-10-10 23:40] VITALS: BP 138/65
[2017-10-11 04:00] VITALS: BP 143/73
[2017-10-11 06:25] LABS: HEMATOCRIT 30.7 % (37.0-47.0); HEMOGLOBIN 10.1 gm/dL (12.0-15.0); MCH 28.3 pg (26.0-34.0); MCV 85.8 fL (80.0-100.0); MPV 7.4 fl. (7.2-11.1); RBC 3.57 mil/uL (4.20-5.00); RDW-CV 14.9 % (10.5-14.5); WBC 11.3 thou/uL (4.0-11.0)
[2017-10-11 06:32] LABS: CALCIUM 8.5 mg/dL (8.5-10.1); CREATININE 0.7 mg/dL (0.6-1.3); MAGNESIUM 1.5 mg/dL (1.8-2.4)
[2017-10-11 09:30] VITALS: BP 172/89
--- NOTE | 2017-10-11 14:25 | NUR ---
Pt to dc home today with services to follow. Pt continues to refuse to go to SNF. ALEXANDER spoke with pt friend Amberly who plans to order picker/assembler pt from the hospital, help with picking up prescriptions and groceries and take pt to pt home. ALEXANDER faxed final orders/med list to [facility] fax [phone].
[2017-10-11 14:49] VITALS: BP 133/76
[2017-10-11] MEDS ORDERED: KETOCONAZOLE15 GM TOP (15:25)
[2017-10-11] MEDS ORDERED: BISACODYL SUPP10 MG RECTAL (15:58)
[2017-10-11 16:32] VITALS: BP 133/76
--- NOTE | 2017-10-11 17:17 | NUR ---
PATIENT IS ALERT AND ORIENTED TODAY, HAS SOME ANXIETY AND AGITATION MOST OF THE DAY. PATIENT WILL BE PLEASANT THEN AGITATED IN SAME VISIT TO ROOM. VITAL SIGNS HAVE BEEN STABLE TODAY. PATIENT IS BEING DISCHARGED TO HOME WITH HOME HEALTH, REFUSED TO GO TO SKILLED FACILITY. PATIENT LEFT WITH FRIEND, WITH DISCHARGE INSTRUCTIONS AND PRESCRIPTIONS. LEFT VIA WHEEL CHAIR TO HOME.
== END 2017-10-11 17:15 | disposition home health service (06) | DRG 335 ==
LOC: M.ERS 22:22 → M.TBA-ER 09-30 00:59 → M.ERS 09-30 00:59 → M.ICU 09-30 02:38 → M.TBA-ER 09-30 02:38 → M.ICU 09-30 10:20 → M.3W 10-02 17:55
PROVIDERS: Emergency Medicine; Family Medicine; Surgery; ADMIT Internal Medicine
PROC: 0DN80ZZ Release Small Intestine, Open Approach (ICD-10-PCS; principal; 2017-09-30)
PROC: 5A1945Z Respiratory Ventilation, 24-96 Consecutive Hours (ICD-10-PCS; 2017-09-30)
PROC: 0BH17EZ Insertion of Endotracheal Airway into Trachea, Via Natural or Artificial Opening (ICD-10-PCS; 2017-09-30)
PROC: 0DSA0ZZ Reposition Jejunum, Open Approach (ICD-10-PCS; 2017-09-30)
PROC: 02HV33Z Insertion of Infusion Device into Superior Vena Cava, Percutaneous Approach (ICD-10-PCS; 2017-10-01)
PROC: B548ZZA Ultrasonography of Superior Vena Cava, Guidance (ICD-10-PCS; 2017-10-01)
PROC: 5A09357 Assistance with Respiratory Ventilation, Less than 24 Consecutive Hours, Continuous Positive Airway Pressure (ICD-10-PCS; 2017-10-02)
DX: K56.2 Volvulus (principal); I50.23 Acute on chronic systolic (congestive) heart failure; J96.01 Acute respiratory failure with hypoxia; R65.10 Systemic inflammatory response syndrome (SIRS) of non-infectious origin without acute organ dysfunction; K45.8 Other specified abdominal hernia without obstruction or gangrene; I10 Essential (primary) hypertension; E87.6 Hypokalemia; E83.42 Hypomagnesemia; K57.30 Diverticulosis of large intestine without perforation or abscess without bleeding; D64.9 Anemia, unspecified; E11.65 Type 2 diabetes mellitus with hyperglycemia; B35.4 Tinea corporis; R33.9 Retention of urine, unspecified; F41.9 Anxiety disorder, unspecified; Z90.49 Acquired absence of other specified parts of digestive tract; Z85.07 Personal history of malignant neoplasm of pancreas; Z82.49 Family history of ischemic heart disease and other diseases of the circulatory system; Z91.041 Radiographic dye allergy status; Z88.6 Allergy status to analgesic agent; Z88.0 Allergy status to penicillin; Z79.899 Other long term (current) drug therapy; Z90.710 Acquired absence of both cervix and uterus; Z88.8 Allergy status to other drugs, medicaments and biological substances

== ENCOUNTER 2017-10-25 21:51 | Inpatient (IN) | payer MEDICARE, OTHER ==
[~2017-10-25] VITALS: Ht 152.4 cm; Wt 85.3 kg
[~2017-10-25 21:51] MED LIST changes: +ACETAMINOPHEN650 M5 RECTAL; +ACETYLCYST200 MG/1 M INH; +ALBUTEROL2.5 MG/31 INH; +ATORVASTATIN CA40 MG PO; +BISACODYL SUPP10 MG RECTAL; +BROVANA15 MCG/2 M INH; +CARDIZEM60 MG PER TUBE; +CLARITIN10 MG PO; +DEXTROSE 10%-W250 ML IV; +DUONEB 2.5-0.5 M3 ML INH; +FERREX 150 PLU1 EAC1 PO; +GLUCAGON HCL1 MG IM; +GLUCOTROL5 MG PO; +HUMALOG100 UNIT/1 SUBQ; +HYDROCODONE-AP1 EAC6 PO; +KETOCONAZOLE15 GM TOP; +LEVEMIR SUBQ; +NITROGLYCERIN0.4 MG SUBLING; +PREDNISONE 20 M20 MG PER TUBE; +PROTONIX40 M1 PO; +PULMICORT0.5 MG/2 M INH; +REGLAN10 MG PO; +SENOKOT8.6 MG PO; +SINGULAIR 10 MG10 M1 PER TUBE; +ZOFRAN ODT4 MG DISSOLVE
[2017-10-25 21:52] VITALS: BP 159/82
[2017-10-25] MEDS ORDERED: LANTUS100 UNIT/M SUBQ (22:09)
--- NOTE | 2017-10-25 22:18 | NUR ---
INCISION SITE INSPECTED MINIMAL REDNESS NOTED ABDIFATAH APPEAR INTACE NO SIGNS OF DRAINAGE NOTED PT DENIES DRAINAGE AT THIS TIME.
--- NOTE | 2017-10-25 22:33 | NUR ---
DR EVANS TALKING WITH PATIENT CURRENTLY. PATIENT UPSET AND AGITATED THAT SHE HASN'T HAD ANY PAIN MEDICATION AT THIS TIME. PATIENT STATES SHE IS STILL IN SEVERE PAIN AND IS AGITATED.
[2017-10-25 22:58] LABS: HEMATOCRIT 32.4 % (37.0-47.0); HEMOGLOBIN 10.3 gm/dL (12.0-15.0); MCHC 31.7 g/dL (28.0-37.0); MCV 88.5 fL (80.0-100.0); MPV 7.5 fl. (7.2-11.1); NUCLEATED RBCS 0 /100WBC; PLATELET COUNT* 311 thou/uL (150-400); RBC 3.66 mil/uL (4.20-5.00); WBC 12.3 thou/uL (4.0-11.0)
[2017-10-25 23:06] LABS: CREATININE 0.7 mg/dL (0.6-1.3); POTASSIUM 3.1 mmol/L (3.5-5.1)
[2017-10-25 23:10] LABS: ALBUMIN 2.8 g/dL (3.4-5.0); TOTAL BILIRUBIN 0.1 mg/dL (<0.1-1.0)
[2017-10-25 23:50] LABS: ABSOLUTE EOSINOPHILS 0.1 thou/uL (0.0-0.7); ABSOLUTE LYMPHOCYTES 5.4 thou/uL (0.8-5.3); ABSOLUTE MONOCYTES 1.1 thou/uL (0.0-1.2); ABSOLUTE NEUTROPHILS 5.7 thou/uL (1.6-8.1)
[2017-10-25 23:51] LABS: PLATELET ESTIMATE ADEQUATE
[2017-10-26 02:17] VITALS: BP 165/60
[2017-10-26 03:39] VITALS: BP 172/85
--- NOTE | 2017-10-26 05:58 | NUR ---
ASSESSMENT COMPLETE. PT ADMITTED WITH ABDOMINAL PAIN. IV PAIN AND NAUSEA MEDICATION ADMINISTERED ONCE SINCE ADMISSION. PT HAS NOT SLEPT. PT IS ON ROOM AIR WITH ADEQAUTE SATS. PT IS ACCUCHECK, BLOOD SUGAR WAS 95 UPON ADMISSION TO THE FLOOR. PT HAS IV IN LEFT HAND WITH IV FLUIDS INFUSING. PT HAS ABDOMINAL INCISION FROM HERNIA SURGERY HERE IN SEPTEMBER. ABDIFATAH REPORTED TO BE TAKEN OUT IN ED BEFORE COMING TO THE FLOOR. PT IS WEAK AND UNSTEADTY. FALL RISK, BED ALARM ON. SEE ASSESSMENT AND VITALS FOR OTHER DETAILS. CALL LIGHT WITHIN REACH, WILL CONTINUE TO MONITOR
[2017-10-26 08:20] VITALS: BP 154/70
[2017-10-26 10:50] VITALS: BP 139/61; BP 146/78; BP 159/102
--- NOTE | 2017-10-26 11:43 | NUR ---
CM SPOKE TO THE PATIENT TO DISCUSS HOME SITUATION, DISCHARGE PLAMNING, AND TO INFORM OF THE ROLE OF CM. OZZIE ALERT AND ORIENTED. PATIENT RESIDES AT HOME ALONE. PATIENT ABLE TO PREPARE OWN MEALS, AND DOES OWN MED SURG RN. PATIENT STATES THAT HER GRANDSON JACK AND FRIEND ROMERO ARE A GOOD SOURCE OF SUPPORT AND ASSIST HER NEEDED WITH TRANSPORTATION TO DR'S APPT'S. PATIENT OWNS A WALKER BUT DOES NOT USE IT. PATIENT HAS A HX OF HH WITH [facility], BUT STATES THAT SHE WILL NOT HAVE HH AT DISCHARGE. PATIENT HAS NO HX OF SNF AND DOES NOT WANT SNF AT D/C. CM WILL REMAIN AVAILABLE TO ASSIST AND FOLLOW NEEDED.
[2017-10-26 12:18] LABS: URINE BILIRUBIN NEGATIVE (Negative); URINE BLOOD NEGATIVE (Negative); URINE CLARITY CLEAR; URINE COLOR YELLOW; URINE GLUCOSE-RANDOM NEGATIVE (Negative); URINE KETONES NEGATIVE (Negative); URINE LEUKOCYTES-REFLEX NEGATIVE (Negative); URINE NITRITE-REFLEX NEGATIVE (Negative); URINE PROTEIN NEGATIVE (Negative); URINE UROBILINOGEN 0.2 E.U./dl (0.2-1.0)
[2017-10-26 16:00] VITALS: BP 141/65
--- NOTE | 2017-10-26 17:15 | NUR ---
PATIENT REFUSING TRAMADOL AT THIS TIME STATING SHE HAS BEEN ON IT FOR SEVERAL YEARS AND IT IS NOT HELPING WITH HER PAIN. ASKING TO HAVE PHYSICIAN PAGED TO SEE IF THERE IS SOMETHING ELSE SHE CAN GET FOR PAIN. EDUCATED PATIENT THAT PHYSICIAN MAY NOT ORDER ANYTHING ELSE. PATIENT VERBALIZED UNDERSTANDING. WILL PAGE PHYSICIAN FOR PATIENT'S REQUEST.
--- NOTE | 2017-10-26 19:23 | NUR ---
PATIENT HAS BEEN A/O X 4 THIS SHIFT. CAN BE MANIPULATIVE WITH STAFF AND RUDE AT TIMES. HAS BEEN RECEIVING TRAMADOL FOR PAIN, STATING IT IS NOT EFFECTIVE AND REFUSED IT THIS EVENING. PATIENT GIVEN HYDROCODONE THIS EVENING AND EDUCATION PROVIDED TO PATIENT STATING NEED TO USE TRAMADOL FIRST. PATIENT STARTED ON SCOPLAMINE PATCH THIS SHIFT. PATIENT GIVEN ZOFRAN THROUGHOUT THE SHIFT FOR NAUSEA. CONTINUES ON IV FLUIDS. UP TO CHAIR THIS SHIFT, REFUSING MOST TURNS. ERICA-CARE PROVIDED WHEN INCONTINENT. URINE AND STOOL SAMPLES SENT. MIDLINE INCISION INTACT. SEEN BY SURGERY THIS SHIFT. PARTICIPATED WITH PHYSICAL THERAPY WITH RELUCTANCE AND WAS RUDE TO PHYSICAL THERAPIST WHEN IN ROOM. PATIENT TOLERATING DIET. BLOOD SUGARS MONITORED AND INSULIN GIVEN WHEN NEEDED. HOURLY ROUNDING COMPLETED. CALL LIGHT WITHIN REACH. WILL CONTINUE WITH PLAN OF CARE.
[2017-10-26 19:50] VITALS: BP 168/78
[2017-10-27 05:13] LABS: CALCIUM 7.4 mg/dL (8.5-10.1); CREATININE 0.6 mg/dL (0.6-1.3); HEMOGLOBIN 10.3 gm/dL (12.0-15.0); MAGNESIUM 1.3 mg/dL (1.8-2.4); MCH 28.1 pg (26.0-34.0); MCV 87.9 fL (80.0-100.0); POTASSIUM 4.2 mmol/L (3.5-5.1); RBC 3.65 mil/uL (4.20-5.00); RDW-CV 15.7 % (10.5-14.5); WBC 9.4 thou/uL (4.0-11.0)
--- NOTE | 2017-10-27 06:19 | NUR ---
ASSESSMENT COMPLETE. PT UP MOST OF THE NIGHT. PT REFUSING TRAMADOL FOR PAIN DURING THE NIGHT AND CRYING OUT IN PAIN, PRN HYDROCODONE GIVEN TWICE DURING THE NIGHT. PT GIVEN ZOFRAN ONCE. PT ALSO HAS SCOPE PATCH BEHIND RIGHT EAR. PT INCONT OF DIARRHEA AND URINE, PT IS ABLE TO CALL OUT FOR BEDPAN AT TIMES. PT IS ON ROOM AIR WITH ADEQAUTE SATS. PT HAS IV IN LEFT HAND WITH IV FLUIDS INFUSING. PT IS FALL RISK, BED ALARM ON. PT IS Q2 TURN FOR SKIN INTEGRITY. SEE ASSESSMENT AND VITALS FOR OTHER DETIALS. CALL LIGHT WITHIN REACH, WILL CONTINUE TO MONITOR
[2017-10-27 08:10] VITALS: BP 154/86
--- NOTE | 2017-10-27 14:37 | NUR ---
O.T. ORDER RECIEVED AND CHART REVIEWED. PT. WAS SEATED ON THE COMMODE UPON ARRIVAL. SHE DECLINED O.T. SERVICES. O.T. STAYED WITH PT. TO MAKE SURE SHE GOT OFF THE COMMODE SAFELY. PT. COMPLETED COMMODE TRANSFER, BACK PERICARE, WASHING HANDS WITH S/U OF SOAPY PAPER TOWEL, AND BED MOBILITY SUP A. THEREFORE, O.T. SERVICES ARE NOT INDICATED PER PT. PERFORMANCE AND PT.'S DECLINATION OF O.T. SERVICES.
[2017-10-27 15:58] VITALS: BP 180/95
--- NOTE | 2017-10-27 19:13 | NUR ---
PATIENT RESTING IN BED. PATIENT WAS UP IN CHAIR THIS AM BUT STATES SHE CANNOT SIT UP BECAUSE IT CAUSES INCREASED ABDOMINAL PAIN. PATIENT HAS COMPLAINTS OF ABDOMINAL PAIN WITH MINIMAL RELIEF WITH MEDICATION. PATIENT REFUSED INSULIN THIS AFTERNOON. PATIENT REFUSED DINNER THIS EVENING STATING ZOFRAN WAS NOT GIVEN ENOUGH TIME BEFORE DINNER. PATIENT DID NOT HAVE DIARRHEA TODAY, SOFT FORMED STOOL THIS AM. PATIENT WAS RUDE TO NURSING STAFF THROUGHOUT DAY. PATIENT HAS CALL LIGHT WITHIN REACH. WILL CONTINUE TO MONITOR.
[2017-10-27 19:42] VITALS: BP 211/96
[2017-10-28 00:23] VITALS: BP 156/66
[2017-10-28 03:53] LABS: ABSOLUTE BASOPHILS 0.1 thou/uL (0.0-0.2); ABSOLUTE EOSINOPHILS 0.4 thou/uL (0.0-0.7); ABSOLUTE LYMPHOCYTES 3.3 thou/uL (0.8-5.3); ABSOLUTE MONOCYTES 0.8 thou/uL (0.0-1.2); ABSOLUTE NEUTROPHILS 5.2 thou/uL (1.6-8.1); BASOPHILS 0.6 %; EOSINOPHILS 3.8 %; HEMATOCRIT 32.5 % (37.0-47.0); HEMOGLOBIN 10.4 gm/dL (12.0-15.0); LYMPHOCYTES 34.1 %; MCH 27.9 pg (26.0-34.0); MCHC 31.9 g/dL (28.0-37.0); MCV 87.3 fL (80.0-100.0); MONOCYTES 8.3 %; MPV 8.2 fl. (7.2-11.1); NUCLEATED RBCS 0 /100WBC; PLATELET COUNT* 247 thou/uL (150-400); POLYS 53.2 %; RBC 3.72 mil/uL (4.20-5.00); RDW-CV 15.4 % (10.5-14.5); WBC 9.8 thou/uL (4.0-11.0)
[2017-10-28 04:25] LABS: ALBUMIN 2.6 g/dL (3.4-5.0); CALCIUM 7.7 mg/dL (8.5-10.1); CREATININE 0.6 mg/dL (0.6-1.3); POTASSIUM 3.6 mmol/L (3.5-5.1); TOTAL BILIRUBIN 0.3 mg/dL (<0.1-1.0); TOTAL PROTEIN 5.6 g/dL (6.4-8.2)
--- NOTE | 2017-10-28 06:38 | NUR ---
ASSESSMENT COMPLETE. PT FUSSY THROUGH THE NIGHT ABOUT DAY SHIFT NOT "CATERING TO HER NEEDS". PT GIVEN PRN PAIN MEDICATION THROUGH THE NIGHT. PT REPORTS PAIN 10/10 EVEN AFTER HYDROCODONE. PT GIVEN ZOFRAN FOR NAUSEA. PT HAS ELEVATED BP, PRN HYDRALAZINE GIVEN AND BP NOW STABLE. CDIFF CAME BACK +, PO VANC AND IV FLAGYL STARTED. PT IS ON ROOM AIR WITH ADEQAUTE SATS. PT TAKES PILLS WITHOUT DIFFICULTY. PT IS UP STANDBY ASSIST TO BSC. PT HAS IV IN LEFT HAND, FLUIDS INFUSING. PT IS Q2 TURN FOR SKIN INTEGRITY. SEE ASSESSMENT AND VITALS FOR OTHER DETAILS. CALL LIGHT WITHIN REACH, WILL CONTINUE TO MONITOR
[2017-10-28 08:00] VITALS: BP 156/66
[2017-10-28] MEDS ORDERED: VANCOMYCIN125 MG/2.1 PO (16:27)
[2017-10-28] MEDS ORDERED: HYDROCODON-ACE1 EAC7 PO (16:33)
[2017-10-28] MEDS ORDERED: ONDANSETRON HCL4 M2 PO (16:36)
[2017-10-28 16:37] VITALS: BP 156/66
== END 2017-10-28 17:07 | disposition home or self-care (01) | DRG 372 ==
LOC: M.ERS 21:51 → M.3W 10-26 02:01 → M.TBA-ER 10-26 02:01 → M.3W 10-26 02:27
PROVIDERS: Internal Medicine; Personal Emergency Response Attendant; ADMIT Internal Medicine
DX: A04.72 Enterocolitis due to Clostridium difficile, not specified as recurrent (principal); R65.10 Systemic inflammatory response syndrome (SIRS) of non-infectious origin without acute organ dysfunction; E44.1 Mild protein-calorie malnutrition; G89.29 Other chronic pain; F31.9 Bipolar disorder, unspecified; F41.9 Anxiety disorder, unspecified; E11.9 Type 2 diabetes mellitus without complications; K43.2 Incisional hernia without obstruction or gangrene; I10 Essential (primary) hypertension; E87.6 Hypokalemia; Z91.041 Radiographic dye allergy status; Z90.49 Acquired absence of other specified parts of digestive tract; Z90.710 Acquired absence of both cervix and uterus; Z79.4 Long term (current) use of insulin; Z79.899 Other long term (current) drug therapy

== ENCOUNTER 2017-12-22 13:52 | Inpatient (IN) | payer MEDICARE, OTHER ==
[~2017-12-22] VITALS: Ht 152.4 cm; Wt 84.8 kg
[~2017-12-22 13:52] MED LIST changes: +HYDROCODON-ACE1 EAC7 PO; +VANCOMYCIN125 MG/2.1 PO
[2017-12-22 13:53] VITALS: BP 165/59
[2017-12-22 14:30] LABS: NUCLEATED RBCS 0 /100WBC; PLATELET COUNT* 316 thou/uL (150-400)
[2017-12-22 14:32] LABS: HEMATOCRIT 36.7 % (37.0-47.0); HEMOGLOBIN 11.5 gm/dL (12.0-15.0); MCH 27.1 pg (26.0-34.0); MCHC 31.3 g/dL (28.0-37.0); MCV 86.4 fL (80.0-100.0); MPV 8.5 fl. (7.2-11.1); RBC 4.24 mil/uL (4.20-5.00); RDW-CV 15.5 % (10.5-14.5); WBC 18.1 thou/uL (4.0-11.0)
[2017-12-22 14:41] LABS: ANION GAP 11 mmol/L (7-16); BUN 15 mg/dL (7-18); CALCIUM 8.8 mg/dL (8.5-10.1); CHLORIDE 108 mmol/L (98-107); CO2 28 mmol/L (21-32); CREATININE 0.8 mg/dL (0.6-1.3); GLUCOSE 169 mg/dL (70-99); POTASSIUM 3.4 mmol/L (3.5-5.1); SODIUM 147 mmol/L (136-145)
[2017-12-22 14:48] LABS: ALBUMIN 3.4 g/dL (3.4-5.0); ALKALINE PHOSPHATASE 107 U/L (46-116); LIPASE 41 U/L (73-393); SGOT 8 U/L (15-37); SGPT 9 U/L (30-65); TOTAL BILIRUBIN 0.2 mg/dL (<0.1-1.0); TOTAL PROTEIN 7.1 g/dL (6.4-8.2); TROPONIN-I LEVEL <0.06 ng/mL (<0.06)
[2017-12-22 15:02] LABS: ABSOLUTE EOSINOPHILS 0.2 thou/uL (0.0-0.7); ABSOLUTE LYMPHOCYTES 3.8 thou/uL (0.8-5.3); ABSOLUTE MONOCYTES 1.1 thou/uL (0.0-1.2)
[2017-12-22 15:03] LABS: ANISOCYTOSIS 1+; CLUMPED PLTS FEW; HYPOCHROMASIA 2+; MACROCYTES 1+; PLATELET ESTIMATE ADEQUATE
[2017-12-22 16:07] LABS: APTT 23.4 Seconds (25.0-31.3); PROTIME 10.1 Seconds (9.20-11.50)
[2017-12-22 17:48] LABS: URINE BILIRUBIN NEGATIVE (Negative); URINE BLOOD NEGATIVE (Negative); URINE CLARITY CLEAR; URINE COLOR YELLOW; URINE GLUCOSE-RANDOM NEGATIVE (Negative); URINE KETONES NEGATIVE (Negative); URINE LEUKOCYTES-REFLEX 3+ (Negative); URINE NITRITE-REFLEX NEGATIVE (Negative); URINE PROTEIN NEGATIVE (Negative); URINE UROBILINOGEN 0.2 E.U./dl (0.2-1.0)
[2017-12-22 18:13] VITALS: BP 142/83
[2017-12-22 18:13] LABS: SQUAMOUS 4-10 Moderate /LPF (0-3); URINE RBC 0-2 Rare /HPF (0-2); WBC CLUMPS Few (None Seen)
[2017-12-22 18:14] LABS: BACTERIA-REFLEX 1-9 Few /HPF (None Seen); CASTS None Seen /LPF (None Seen); CRYSTALS None Seen /LPF (None Seen); MUCUS 0-3 Light strn/LPF (None Seen)
[2017-12-22 19:03] VITALS: BP 154/82
[2017-12-22] MEDS ORDERED: GABAPENTIN 100100 MG PO ×2 (23:29)
[2017-12-23 04:14] LABS: HEMATOCRIT 31.7 % (37.0-47.0); HEMOGLOBIN 10.2 gm/dL (12.0-15.0); MCH 27.8 pg (26.0-34.0); MCHC 32.1 g/dL (28.0-37.0); MCV 86.7 fL (80.0-100.0); MPV 7.8 fl. (7.2-11.1); RBC 3.66 mil/uL (4.20-5.00); RDW-CV 15.6 % (10.5-14.5)
[2017-12-23 04:40] LABS: CALCIUM 7.8 mg/dL (8.5-10.1); CREATININE 0.7 mg/dL (0.6-1.3); MAGNESIUM 1.2 mg/dL (1.8-2.4); POTASSIUM 3.2 mmol/L (3.5-5.1)
[2017-12-23 08:00] VITALS: BP 167/62
--- NOTE | 2017-12-23 14:31 | CON ---
[address] [address] CONSULTATION Name: BROOK DIANA Room: [address] IN M.R.#: [id number] Admission: 12/22/17 Attend Phys: Juan Rainey MD Discharge: Date of : 44 Report #: [id number] THIS REPORT FOR: //name// CC: Bon Rainey DATE OF SERVICE: 12/23/2017 ATTENDING PHYSICIAN: Juan Rainey M.D. REASON FOR EVALUATION: Recurrent Clostridium difficile colitis. HISTORY OF PRESENT ILLNESS: Chart reviewed, the patient examined. This is a 77-year-old with history of diabetes mellitus as well as pancreatic cancer who has been hospitalized actually 4 times since May of this year with various problems in September, underwent herniorrhaphy in October. Postop course was complicated by C. diff colitis. She was at home and living by herself with difficulty. She noted that she had a profound diarrhea over the course of the day or 2 prior to her admission with inability to care for herself. In addition to that, she had abdominal pain and nausea. Since admission, however, she has had generally formed stools. She was empirically started on therapy with oral vancomycin. She has been afebrile, does admit to some mild dyspnea and generalized weakness. ALLERGIES: CONTRAST DYE. CURRENT MEDICATIONS: Include gabapentin, atorvastatin, insulin, oral vancomycin, fentanyl, alprazolam, p.r.n. analgesics and antiemetics. PAST MEDICAL HISTORY: As noted above, history of diabetes mellitus, pancreatic cancer, hypertension, previous hysterectomy, herniorrhaphy, C. diff. SOCIAL HISTORY: Nonsmoker, no ethanol. FAMILY HISTORY: Noncontributory. REVIEW OF SYSTEMS: As above. PHYSICAL EXAMINATION: GENERAL: She is generally pleasant. She appears chronically ill, undernourished, in moderate distress. VITAL SIGNS: Temperature 98, pulse 75, respirations 18, blood pressure 167/62. SKIN: Warm, dry. HEENT: Otherwise, unremarkable. NECK: Supple. LUNGS: Diminished breath sounds, [place] [address] CONSULTATION Name: BROOK DIANA Room: [address]#: [id number] Admission: 12/22/17 Attend Phys: Juan Rainey MD Discharge: Date of : 44 Report #: [id number] HEART: Regular. I do not appreciated murmur. ABDOMEN: Soft. I think there is an appreciable tenderness. There are no peritoneal signs. GENITOURINARY: Deferred. RECTAL: Deferred. LABORATORY DATA: Initially, sodium 147, potassium 3.4, chloride 108, bicarbonate is 28, anion gap of 11, BUN and creatinine 15 and 0.8, glucose of 169. LFTs unremarkable. Albumin of 3.4, total protein 7.1. Estimated GFR of 70. CBC: White count of 18.1, H and H 11.2 and 36.7, platelets of 316, fairly unremarkable differential. CT abdomen and pelvis, unremarkable pancreas, GI tract distal partial gastrectomy is performed, small bowel unremarkable, colonic diverticula without evidence of active inflammation. No adenopathy. Chest x-ray showed no acute cardiopulmonary process. Urinalysis, 16-25 white cells, 1-9 bacteria. ASSESSMENT: Diarrheal illness with history of Clostridium difficile in the recent past. It sounds like she is ill equipped to care for herself. We will continue the oral vancomycin for the moment. At this point, she has formed stools. Plan on tapering dose. In the event she has recurrent diarrhea, we will certainly try to collect sample for Clostridium difficile PCR evaluation. Although she has some moderate pyuria, does not have clinical evidence of a urinary tract infection. We will hold on any treatment at this point, await results. She appears to be quite tenuous at this point. We will follow expectantly. <ELECTRONICALLY SIGNED> By: Jose G Benjamin MD 12/23/17 1431 1339 [id number] Benjamin MD /nt
[2017-12-23 15:48] VITALS: BP 163/78
--- NOTE | 2017-12-23 16:32 | EKG ---
[place] [address] ELECTROCARDIOGRAM REPORT Name: BROOK DIANA Room: [address] ADM IN M.R.#: [id number] Admission: 12/22/17 Attend Phys: Juan Rainey MD Discharge: Date of : 44 Report #: [id number] THIS REPORT FOR: //name// [facility] ED Test Date: 2017-12-22 Test Time: 14:15:09 Pat Name: BROOKRICHIE DIANA Department: Room: [facility] Gender: F [place] Truck Driver: Eryn SCOTT : 1940 Requested By: Jorge Luis Betancourt Order Number: [id number] MD: Jaciel Padilla Measurements Intervals [place] Rate: 96 P: 27 WI: 157 QRS: -14 QRSD: 69 T: 169 QT: 361 QTc: 457 Interpretive Statements Sinus rhythm Low voltage, precordial leads LVH by voltage Nonspecific T-wave inversion Compared to ECG 09/30/2017 02:03:47 Low QRS voltage now present Electronically Signed On 12-23-2017 16:31:57 CDT by Jaciel Padilla [email or web address] <ELECTRONICALLY SIGNED> By: Jaciel Padilla MD, FACC 12/23/17 1631 1415 1415 Jaciel Padilla MD, [facility] /EPI
[2017-12-23 20:05] VITALS: BP 146/90
[2017-12-23 21:13] LABS: MAGNESIUM 1.7 mg/dL (1.8-2.4); POTASSIUM 3.9 mmol/L (3.5-5.1)
[2017-12-24 07:40] VITALS: BP 167/82
[2017-12-24 08:22] LABS: HEMATOCRIT 31.8 % (37.0-47.0); HEMOGLOBIN 10.3 gm/dL (12.0-15.0); MCH 27.7 pg (26.0-34.0); MCHC 32.4 g/dL (28.0-37.0); MCV 85.5 fL (80.0-100.0); MPV 7.5 fl. (7.2-11.1); RBC 3.72 mil/uL (4.20-5.00); RDW-CV 15.4 % (10.5-14.5); WBC 10.3 thou/uL (4.0-11.0)
[2017-12-24 08:28] LABS: CALCIUM 8.1 mg/dL (8.5-10.1); CREATININE 0.7 mg/dL (0.6-1.3); MAGNESIUM 1.3 mg/dL (1.8-2.4); POTASSIUM 4.3 mmol/L (3.5-5.1)
[2017-12-24 16:12] VITALS: BP 219/66
[2017-12-24 17:09] VITALS: BP 192/85
[2017-12-25 00:25] VITALS: BP 195/113
[2017-12-25 07:45] VITALS: BP 151/71
[2017-12-25 10:30] VITALS: BP 148/70
[2017-12-25 16:00] VITALS: BP 150/68
[2017-12-25 23:00] VITALS: BP 116/56
[2017-12-26 08:30] VITALS: BP 162/85
[2017-12-27 00:48] VITALS: BP 97/59
[2017-12-27 04:34] VITALS: BP 119/72
[2017-12-27 08:30] VITALS: BP 128/63
[2017-12-27 09:51] VITALS: BP 128/63
[2017-12-27] MEDS ORDERED: VANCOMYCIN125 MG/2.1 PO (12:08)
== END 2017-12-27 16:45 | disposition home health service (06) | DRG 872 ==
LOC: M.ERS 13:52 → M.3W 16:05 → M.TBA-ER 16:05 → M.3W 18:32
PROVIDERS: Family Medicine; ADMIT Internal Medicine
DX: A41.9 Sepsis, unspecified organism (principal); A04.71 Enterocolitis due to Clostridium difficile, recurrent; E11.9 Type 2 diabetes mellitus without complications; M25.532 Pain in left wrist; I10 Essential (primary) hypertension; E87.6 Hypokalemia; N30.90 Cystitis, unspecified without hematuria; E86.9 Volume depletion, unspecified; E66.9 Obesity, unspecified; Z68.36 Body mass index [BMI] 36.0-36.9, adult; Z85.07 Personal history of malignant neoplasm of pancreas; Z87.828 Personal history of other (healed) physical injury and trauma; Z90.49 Acquired absence of other specified parts of digestive tract; Z90.710 Acquired absence of both cervix and uterus; Z79.4 Long term (current) use of insulin; Z79.899 Other long term (current) drug therapy; Z91.041 Radiographic dye allergy status; Z82.49 Family history of ischemic heart disease and other diseases of the circulatory system

== ENCOUNTER 2017-12-29 12:46 | Inpatient (IN) | payer MEDICARE, OTHER ==
[~2017-12-29] VITALS: Ht 172.7 cm; Wt 84.8 kg
[~2017-12-29 12:46] MED LIST changes: +GABAPENTIN 100100 MG PO
[2017-12-29 12:47] VITALS: BP 116/75
[2017-12-29 13:57] LABS: URINE BILIRUBIN NEGATIVE (Negative); URINE BLOOD TRACE (Negative); URINE CLARITY CLEAR; URINE COLOR YELLOW; URINE GLUCOSE-RANDOM NEGATIVE (Negative); URINE KETONES NEGATIVE (Negative); URINE LEUKOCYTES-REFLEX 2+ (Negative); URINE NITRITE-REFLEX POSITIVE (Negative); URINE PROTEIN TRACE (Negative); URINE UROBILINOGEN 0.2 E.U./dl (0.2-1.0)
[2017-12-29 14:05] LABS: CASTS None Seen /LPF (None Seen); CRYSTALS None Seen /LPF (None Seen); MUCUS None Seen strn/LPF (None Seen); SQUAMOUS 0-3 Few /LPF (0-3); URINE RBC 3-10 Few /HPF (0-2); WBC CLUMPS Few (None Seen)
--- NOTE | 2017-12-29 14:26 | NUR ---
SPOKE WITH [facility]. INFORMED HER PT.WAS BACK IN OUR ER. SHE SAID THEY DID ADMIT HER TO SERVICE YESTERDAY. SHE DID NOT REFUSE, BUT THEIR COMPUTED TOMOGRAPHY SCANNER OPERATOR SAID THEY ARE UNABLE TO ACCEPT PT.BACK ON SERVICE SHE IS NOT SAFE IN HER HOME. SHE NEEDS A HIGHER LEVEL OF CARE.
[2017-12-29 14:30] LABS: HEMATOCRIT 36.2 % (37.0-47.0); HEMOGLOBIN 11.5 gm/dL (12.0-15.0); MCH 27.8 pg (26.0-34.0); MCHC 31.9 g/dL (28.0-37.0); MCV 87.3 fL (80.0-100.0); MPV 7.7 fl. (7.2-11.1); NUCLEATED RBCS 0 /100WBC; PLATELET COUNT* 362 thou/uL (150-400); RBC 4.14 mil/uL (4.20-5.00); WBC 15.2 thou/uL (4.0-11.0)
[2017-12-29 14:39] LABS: ANION GAP 10 mmol/L (7-16); BUN 32 mg/dL (7-18); CALCIUM 9.1 mg/dL (8.5-10.1); CHLORIDE 100 mmol/L (98-107); CO2 26 mmol/L (21-32); CREATININE 1.2 mg/dL (0.6-1.3); GLUCOSE 132 mg/dL (70-99); POTASSIUM 5.5 mmol/L (3.5-5.1); SODIUM 136 mmol/L (136-145)
[2017-12-29 14:41] LABS: APTT 25.4 Seconds (25.0-31.3); INR 1.1; PROTIME 10.8 Seconds (9.20-11.50)
[2017-12-29 14:54] LABS: ALBUMIN 3.6 g/dL (3.4-5.0); ALKALINE PHOSPHATASE 111 U/L (46-116); SGOT 15 U/L (15-37); SGPT 14 U/L (30-65); TOTAL BILIRUBIN 0.3 mg/dL (<0.1-1.0); TOTAL PROTEIN 7.5 g/dL (6.4-8.2); TROPONIN-I LEVEL <0.06 ng/mL (<0.06)
[2017-12-29 15:46] LABS: ABSOLUTE MONOCYTES 0.9 thou/uL (0.0-1.2); ABSOLUTE NEUTROPHILS 10.3 thou/uL (1.6-8.1)
[2017-12-29 15:47] LABS: PLATELET ESTIMATE ADEQUATE
[2017-12-29 15:48] LABS: MACROCYTES Occasional; MICROCYTES Occasional; POLYCHROMASIA Occasional
--- NOTE | 2017-12-29 15:49 | NUR ---
ARM BOARD PLACED ON PT'S RIGHT WRIST.
[2017-12-29 16:25] VITALS: BP 137/68
--- NOTE | 2017-12-29 17:25 | NUR ---
ER ADMIT TO RM 210 REPORT GIVEN PATIENT TO VIA CART ORIENTED TO RM AND CALL LIGHT PATIENT SETTLED IN BED BED ALARM SET C/O BACK PAIN WILL CONTACT ADMIT FOR ORDERS
--- NOTE | 2017-12-29 17:34 | EKG ---
[place] [address] ELECTROCARDIOGRAM REPORT Name: LEBRONBROOK Room: [address] ADM IN .R.#: [id number] Admission: 12/29/17 Attend Phys: Tim Ames MD Discharge: Date of : 44 Report #: [id number] THIS REPORT FOR: //name// [facility] ED Test Date: 2017-12-29 Test Time: 12:52:16 Pat Name: BROOK DIANA Department: Room: [facility] Gender: F Head Correction Officer: Eryn SCOTT : 1940 Requested By: Jorge Luis Betancourt Order Number: [id number] MD: Bon Rico Measurements Intervals [place] Rate: 87 P: 13 NV: 158 QRS: -3 QRSD: 90 T: -1 QT: 433 QTc: 521 Interpretive Statements Sinus rhythm Low voltage, precordial leads LVH by voltage Borderline T abnormalities, inferior leads Prolonged QT interval Compared to ECG 12/22/2017 14:15:09 T-wave abnormality less prominent Electronically Signed On 12-29-2017 17:33:55 CDT by Bon Rico [email or web address] <ELECTRONICALLY SIGNED> By: Bon Rico MD, FACC 12/29/17 1733 1252 1252 Bon Rico MD, FAC /EPI
[2017-12-29 20:20] VITALS: BP 125/57
[2017-12-29 23:45] VITALS: BP 107/39
--- NOTE | 2017-12-30 05:16 | NUR ---
PATIENT ALERT AND ORIENTED. VITALS STABLE ON 2L OF OXYGEN. NOT ON CLAIMS INVESTIGATOR, MED SURG STATUS. REPOSITIONED EVERY TWO HOURS. RICHARD TO DEPENDENT DRAINAGE. FLUIDS INFUSING PER ORDER. COMPLAINTS OF BACK PAIN. TRAMADOL AND HYDROCODONE GIVEN. PATIENT SLEPT COMFORTABLY THROUGH THE NIGHT. BED ALARM IN USE. HOURLY ROUNDS. NURSING WILL CONTINUE TO MONITOR.
[2017-12-30 06:56] LABS: ABSOLUTE BASOPHILS 0.1 thou/uL (0.0-0.2); ABSOLUTE EOSINOPHILS 0.1 thou/uL (0.0-0.7); ABSOLUTE LYMPHOCYTES 2.1 thou/uL (0.8-5.3); ABSOLUTE MONOCYTES 0.7 thou/uL (0.0-1.2); ABSOLUTE NEUTROPHILS 7.7 thou/uL (1.6-8.1); BASOPHILS 0.5 %; EOSINOPHILS 1.2 %; HEMATOCRIT 30.9 % (37.0-47.0); HEMOGLOBIN 10.1 gm/dL (12.0-15.0); LYMPHOCYTES 19.9 %; MCH 28.3 pg (26.0-34.0); MCHC 32.6 g/dL (28.0-37.0); MCV 86.8 fL (80.0-100.0); MONOCYTES 6.2 %; MPV 7.5 fl. (7.2-11.1); NUCLEATED RBCS 0 /100WBC; PLATELET COUNT* 345 thou/uL (150-400); POLYS 72.2 %; RBC 3.57 mil/uL (4.20-5.00); RDW-CV 16.2 % (10.5-14.5); WBC 10.6 thou/uL (4.0-11.0)
[2017-12-30 07:16] LABS: CALCIUM 8.4 mg/dL (8.5-10.1); CREATININE 0.9 mg/dL (0.6-1.3); TOTAL BILIRUBIN 0.4 mg/dL (<0.1-1.0); TOTAL PROTEIN 6.4 g/dL (6.4-8.2)
[2017-12-30 08:48] VITALS: BP 108/53
--- NOTE | 2017-12-30 12:38 | NUR ---
CM ASSESSMENT: Pt is A&O. Resides at home alone. Pt discharged from the hospital to home with [facility] on 12/27/17. Per [facility], they are unable to accept Pt back on service for HH, d/t they do not believe that Pt should be residing at home alone. Updated Pt, she stated "I don't get along with HH agencies." Discussed need for short term skilled, Pt declined stating "I've been there before and they don't give me my meds when I need them." Discussed other skilled facility options, Pt continued to decline. Hx of hotline calls. Hx of non compliance. Pt states that her grandson and friend are supportive and involved. Hx of [facility] [employer]. No home o2. Pt states that she plans to return home at dc, and plans to "never return to this hospital again." Pt uses a walker at home for mobility. CM to discuss alternate HH options at dc. Pt stated that she will be dischargin to home tomorrow. Following.
[2017-12-30 16:32] VITALS: BP 132/69
--- NOTE | 2017-12-30 19:37 | NUR ---
PT CONTINUES TO BE A&O VSS ON 2L OXYGEN VIA NC. PT C/O PAIN TREATED WITH PRN MEDICATIONS PER NOV. PT HAD 2 SOFT FORMED BOWEL MOVEMENTS TODAY. PT CONTINUES TO HAVE APOOR APPETITE AND HAS ONLY AT 50% OR LESS OF ALL MEALS TODAY. HOURLY ROUNDING COMPLETED FOR PT COMFORT AND SAFTEY. NURSING WILL CONTINUE TO MONITOR.
[2017-12-30 20:00] VITALS: BP 117/47
[2017-12-30 22:29] VITALS: BP 104/47
--- NOTE | 2017-12-31 00:02 | NUR ---
PATIENT TRANSFERRED TO UNIT AT APPROXIMATELY 2230. PATIENT IS ALERT AND ORIENTED X 3, BUT FORGETFUL AT TIMES. VSS ON RA. REPORT GIVEN FROM TELE NURSE. ORTHO NURSE AGREES WITH PRIOR ASSESSMENT AND REPORT GIVEN. FALL PRECAUTIONS IN PLACE AND HOURLY ROUNDS TO BE MADE. WILL CONTINUE WITH PLAN OF CARE AND NURSING TO MONITOR.
--- NOTE | 2017-12-31 08:34 | NUR ---
PATIENT HAS SLEPT WELL MOST OF THE NIGHT, BUT HAS BEEN VERY HATEFUL TO STAFF AT TIMES AND TALKS DOWN TO THEM, AND THEN THE NEXT FEW MINUTES IS SAYING THAT SHE IS SORRY FOR BEING HATEFUL. VSS ON RA. PATIENT IS CONFUSED AND FORGETFUL AT TIMES WELL AND STATED THAT SHE DOESN'T UNDERSTAND WHY SHE IS IN THE BASEMENT OF THE HOSPITAL. PAIN MEDICATION GIVEN NEEDED AND CHARTED. FOLELY TO DEPENDENT DRAINAGE WITH YELLOW URINE OUTPUT. IV IN RIGHT WRIST-SL. IV IN LEFT FOREFINGER-NS @ 100ML/HR. SPLINT TO RIGHT WRIST IN PLACE. PATIENT REMAINS ON ISOLATION FOR C-DIFF AT THIS TIME. RECEIVED NEW ORDER THIS AM FROM FOR WRIST X-RAY TO BE DONE D/T C/O PAIN IN RIGHT WRIST D/T PATIENT'S FALL AT HOME. FALL PRECAUTIONS IN PLACE AND HOURLY ROUNDS MADE. WILL CONTINUE WITH PLAN OF CARE AND NURSING TO MONITOR.
[2017-12-31 10:00] VITALS: BP 130/66
--- NOTE | 2017-12-31 12:47 | NUR ---
ASSUMED CARES OF PT AT 0700. PT IN BED, BED IN LOW LOCKED POSITION, FALL PRECAUTIONS IN PLACE. CALL BUTTON AND PERSONAL ITEMS IN PT REACH. PT A&O X4, VERY FUSSY, ANGRY, THREATENS TO LEAVE THIS HOSPITAL. AFTER NURSE TALKS TO PT SHE BEGINS TO CRY AND APOLOGIZE FOR BEING "SO MEAN", PT STATES SHE HURTS. PAIN MEDICATION GIVEN BUT NOT VERY EFFECTIVE. PT OCC. FORGETFUL AND CONFUSED AT TIMES. HRRR PER AUSCULTATION, LUNGS CLEAR TO DIMINISHED PER AUSCULTATION. RICHARD CATH FOR RETENTION PATENT WITH CLEAR YELLOW URINE, OUTPUT WNL. BM TODAY, SOFT PASTY, PT LAYING IN BED AND DID NOT KNOW SHE HAD A BM, PT CLEANED AND BED CHANGED. IV IN LEFT FORE FINGER PATENT TO FLUIDS/NS 100ML/HR. ON CONTACT PRECAUTIONS FOR C-DIFF IN OCTOBER. HOURLY ROUNDING AND ACCU CHECKS CONTINUE. VSS ON RA, AFEBRILE. SPLINTED LEFT WRIST NOT BROKEN PER XRAY. PT TALKED TO ABOUT NOT PARTICIPATING WITH PHYSICAL THERAPY, PT CHANGED HER MIND AND TRIED TO WORK WITH THEM. PT PROGRESSING TOWARDS GOAL. WILL CONTINUE TO MONITOR.
[2017-12-31 14:55] LABS: ABSOLUTE BASOPHILS 0.1 thou/uL (0.0-0.2); ABSOLUTE EOSINOPHILS 0.1 thou/uL (0.0-0.7); ABSOLUTE LYMPHOCYTES 2.2 thou/uL (0.8-5.3); ABSOLUTE MONOCYTES 0.5 thou/uL (0.0-1.2); ABSOLUTE NEUTROPHILS 7.3 thou/uL (1.6-8.1); EOSINOPHILS 0.6 %; HEMATOCRIT 31.9 % (37.0-47.0); HEMOGLOBIN 10.3 gm/dL (12.0-15.0); LYMPHOCYTES 21.8 %; MCH 27.9 pg (26.0-34.0); MCHC 32.2 g/dL (28.0-37.0); MCV 86.6 fL (80.0-100.0); MONOCYTES 5.2 %; MPV 7.9 fl. (7.2-11.1); NUCLEATED RBCS 0 /100WBC; PLATELET COUNT* 292 thou/uL (150-400); POLYS 71.4 %; RBC 3.69 mil/uL (4.20-5.00); WBC 10.2 thou/uL (4.0-11.0)
[2017-12-31 15:06] LABS: CALCIUM 8.7 mg/dL (8.5-10.1); CREATININE 0.9 mg/dL (0.6-1.3); POTASSIUM 4.9 mmol/L (3.5-5.1)
[2017-12-31 20:00] VITALS: BP 156/69
--- NOTE | 2017-12-31 22:22 | NUR ---
REPORT TO IMPLEMENTATION TECHNICIAN FOR CONTINUED CARES. PT CONTINUES TO HAVE MULTIPLE SOFT, PASTY BM. PT BEGAN AGITATED, ANGRY, THREATENING TO LEAVE HOSPITAL AND REPEATEDLY CALLED REGISTERED ROUTE ASSOCIATE FOR DR TO COME SEE HER. PT STATED SHE IS DEPRESSED AND NOBODY CARES ABOUT HER, PT STATED SHE SHOULD JUST . DR CONTACTED FOR NEW PAIN, ANXIETY AND NAUSEA MEDS. PT CONSOLED, THREE NURSES AND NURSE CARPET FLOOR LAYER APPRENTICE SPOKE WITH PT, SHE CALMED DOWN AND STARTED CRYING. VERY ANXIOUS AND AGITATED. CALLS RAILROAD CAR CHECKER BUTTON OFTEN. VS REMAIN STABLE. FALL PRECAUTIONS REMAIN IN PLACE.
[2018-01-01 04:10] LABS: HEMATOCRIT 31.6 % (37.0-47.0); HEMOGLOBIN 10.3 gm/dL (12.0-15.0); MCH 28.2 pg (26.0-34.0); MCHC 32.6 g/dL (28.0-37.0); MCV 86.5 fL (80.0-100.0); RBC 3.65 mil/uL (4.20-5.00); RDW-CV 15.9 % (10.5-14.5); WBC 9.4 thou/uL (4.0-11.0)
[2018-01-01 04:27] LABS: ALBUMIN 2.9 g/dL (3.4-5.0); CALCIUM 8.6 mg/dL (8.5-10.1); CREATININE 0.9 mg/dL (0.6-1.3); MAGNESIUM 1.3 mg/dL (1.8-2.4); POTASSIUM 4.3 mmol/L (3.5-5.1); TOTAL BILIRUBIN 0.2 mg/dL (<0.1-1.0); TOTAL PROTEIN 6.3 g/dL (6.4-8.2)
--- NOTE | 2018-01-01 04:35 | NUR ---
ALERT AND ORIENTED. UPSET AT BEGINNING OF SHIFT. ONE MINUTE SHE WOULD BE SAYING HOW TERRIBLE EVERYTHING WAS AND THEN THE NEXT SHE WOULD BE SAYING HOW WONDERFUL IT WAS OR CRYING. AT BEGINNING OF SHIFT PATIENT ALSO C/O LEFT LOWER QUADRANT ABDOMINAL PAIN. PAIN MEDICATION GIVEN AND DR NOTIFIED OF PATIENT'S C/O OF MOOD SWINGS AND PAIN. XRAY ORDERED AND DONE. PATIENT RESTING QUIETLY AND MOOD MUCH BETTER AFTER NEW MEDICATION GIVEN. ELISABETH WRAP REMAINS INTACT OVER RIGHT WRIST. RICHARD CATHETER PATENT WITH CLEAR YELLOW URINE. PATIENT HAS BEEN INCONTINENT OF STOOLS 3 TIMES THIS SHIFT. CALL LIGHT WILMA MENA.
[2018-01-01 09:00] VITALS: BP 149/69
[2018-01-01 16:22] VITALS: BP 141/71
--- NOTE | 2018-01-01 18:02 | NUR ---
CM DID NOT SPEAK WITH PT.TODAY. HAD BEEN IN ROOM AND SHE WAS RAISING HER VOICE AT HIM. CT THEN CAME TO GET HER FOR A CT SCAN.
--- NOTE | 2018-01-01 19:41 | NUR ---
ASSUMED CARES OF PT AT 0700. PT IN BED, FALL PRECAUTIONS IN PLACE. CALL BUTTON AND PERSONAL ITEMS IN PT REACH. PT REFUSES SCD'S THIS SHIFT, STATES THEY HURT HER LEGS. PT A&O X4, HRRR PER AUSCULTATION, LCTAB, AFEBRILE. PT REPORTS CONSTANT PAIN IN RIGHT WRIST, LOWER LEFT ABD QUANRANT, FEET AND LEGS BILATERALLY. HOURLY ROUNDING AND ACCU CHECKS COMPLETED. IV IN LEFT FORE FINGER PATENT TO FLUSH, NS INFUSING 100 ML/HR. MG+ BEING REPLACED PO. PT MOVES SELF IN BED FROM SIDE TO SIDE. PT REFUSES SOME CARES AND MEALS. PT CAN BE VERY ANGRY, AGITATED, THREATENING TO STAFF. THREATENS TO JUST LEAVE. DOES NOT LIKE THE WAY DOCTORS DO NOT TALK TO HER. BM RATE HAS DECREASED, PT UP ONE ASSIST/WALKER TO BSC. VSS ON RA. PT PROGRESSING TOWARDS GOAL. DOES NOT WANT TO GO TO SNF, WANTS TO RETURN TO HOME AT [facility] BY HERSELF. REPORT TO STONE SPREADER OPERATOR FOR CONTINUED CARES.
[2018-01-01 20:45] VITALS: BP 153/83
--- NOTE | 2018-01-02 05:32 | NUR ---
PATIENT HAS REMAINED ALERT AND ORIENTED X 4. TEARFUL AT TIMES. PATIENT STATED CONCERNS REGARDING PAIN. DID SPEAK TO PHYSICIAN AT 2325 OBTAINING AN ADDITIONAL DOSE OF IV FENTANYL. CONTINUED PAIN MEDS THROUGHOUT THE SHIFT. PATIENT DID STATE SHE RESTED MORE COMFORTABLY. MEDS AND FLUIDS PER ORDERS. VITAL SIGNS STABLE. CONTINUE TO MONITOR.
[2018-01-02 08:59] VITALS: BP 144/62
--- NOTE | 2018-01-02 16:47 | NUR ---
PATIENT REMAINS ALERT AND ORIENTED. FORGETFUL AT TIMES. 2 BOWEL MOVEMENTS THIS SHIFT. SAMPLE SENT TO LAB. STOOL SOFT BROWN. REMAINS IN SPECIAL CONTACT FOR C-DIFF. REPORTS PAIN 9/10 (GENERALIZED). REFUSED TRAMADOL. REQUESTS THE FENTANYL AND HYDROCODONE. PRN ANXIETY MEDS ADMINISTERED. UP TO CHAIR MOST OF AFTERNOON. TRANSFERS WITH STANDBY ASSIST. SKIN INTACT. RIGHT WRIST REMAINS WRAPPED WITH ELISABETH. PATIENT USES RIGHT WRIST TO PUSH UP IN BED. REPOSITIONED EVERY 2 HOURS. TOLERATING MEALS. PATIENT UPSET SHE CANT HAVE PAIN MEDICATION MORE FREQUENTLY- EDUCATION GIVEN. PATIENT BATHED AND LINENS CHANGED. VSS. CALL LIGHT WITHN REACH. BED ALARM SET. WILL CONTINUE TO MONITOR.
[2018-01-02 17:23] VITALS: BP 156/71
[2018-01-02 18:57] LABS: HEMATOCRIT 32.2 % (37.0-47.0); HEMOGLOBIN 10.5 gm/dL (12.0-15.0); MCH 28.1 pg (26.0-34.0); MCHC 32.6 g/dL (28.0-37.0); MCV 86.2 fL (80.0-100.0); MPV 7.7 fl. (7.2-11.1); RBC 3.73 mil/uL (4.20-5.00); RDW-CV 15.7 % (10.5-14.5); WBC 10.5 thou/uL (4.0-11.0)
[2018-01-02 19:04] LABS: CALCIUM 8.5 mg/dL (8.5-10.1); CREATININE 0.7 mg/dL (0.6-1.3); POTASSIUM 4.5 mmol/L (3.5-5.1)
[2018-01-02 20:30] VITALS: BP 177/71
--- NOTE | 2018-01-03 04:37 | NUR ---
PATIENT HAS REMAINED ALERT AND ORIENTED X 4 THROUGHOUT THE SHIFT. RESTING AT INTERVALS ON HOURLY ROUNDS. CONTINUES TO HAVE STATED PAIN. TONIGHT PAIN ACROSS LOWER ABDOMEN RATHER THAN LLQ. MEDICATED WITH AVAILABLE ORAL AND IV MEDS. SOME CONTROL OBTAINED. NO BM'S TONIGHT. C.DIFF RECHECK RESULTS NEGATIVE. DUE TO CONTINUED DIARRHEA/LOOSE BM'S PREVIOUS SHIFT WILL DEFER DISCONTINUATION OF ISOLATION TO INFECTIN CONTROL. VITAL SIGNS STABLE. REPOSTIONED WITH ASSIST. MAGNESIUM REPLACED OVERNIGHT. RECHECK AT 0700. CONTINUE TO MONITOR.
[2018-01-03 07:09] LABS: HEMATOCRIT 30.5 % (37.0-47.0); MCH 28.2 pg (26.0-34.0); MCHC 32.7 g/dL (28.0-37.0); MCV 86.2 fL (80.0-100.0); MPV 7.5 fl. (7.2-11.1); RBC 3.54 mil/uL (4.20-5.00); RDW-CV 15.7 % (10.5-14.5); WBC 9.7 thou/uL (4.0-11.0)
[2018-01-03 07:45] LABS: CALCIUM 8.7 mg/dL (8.5-10.1); CREATININE 0.7 mg/dL (0.6-1.3); POTASSIUM 4.8 mmol/L (3.5-5.1)
[2018-01-03 08:37] VITALS: BP 144/62
--- NOTE | 2018-01-03 15:17 | NUR ---
[facility] CALLED THIS AM TO CHECK ON PT. GAVE HER INFORMATION. GAVE HER GRANDSON, ELÍAS'S PHONE NUMBER. SHE CAME TO VISIT PT. THIS AFTERNOON. PT.WAS NOT PLEASANT. PT.CALLED SHELDON A LIAR AND SAID SHE DIDN'T WANT TO TALK TO HER ANY LONGER. SHELDON SAID SHE WILL FOLLOW ALONG WITH PT. GABRIELLE SPOKE WITH PT.AND STATED THE TOLD ME THAT I COULD GO HOME. EXPLAINED THAT HH WOULD NOT BE SEEING HER THEY DID NOT FEEL SHE WAS SAFE AT HOME ALONE. SHE SAID SHE DID NOT CARE. SHE PLANS TO GOING HOME TOMORROW.
[2018-01-03 16:00] VITALS: BP 146/60
--- NOTE | 2018-01-03 16:05 | NUR ---
PATIENT REFUSING REPEAT MAGNESIUM DRAW.
--- NOTE | 2018-01-03 16:39 | NUR ---
PATIENT REMAINS ALERT AND ORIENTED. FORGETUL. TEARFUL THIS AFTERNOON DUE TO VISIT BY STATE REGARDING LIVING SITUATION. IVF INFUSING ORDERED. 2 BOWEL MOVEMENTS THIS SHIFT. RICHARD REMOVED. PATIENT PLANS TO DISCHARGE HOME TOMORROW. AMBULATES AND TRANSFERS WITH ASSIST OF 1. ELISABETH WRAP REMOVED FROM RIGHT ARM PER PATIENT REQUEST. REMAINS IN SPECIAL CONTACT. GI CONSULT CANCELLED BY DR. BILLINGS. UROLOGY CONSULT THIS AM. PATIENT UPSET WITH FAMILY SHE THINKS THEY ARE THE ONES WHO HOTLINED HER. REPOSITIONED EVERY 2 HOURS. UP IN CHAIR. BED/CHAIR ALARM IN USE. CALL LIGHT WITHIN REACH. WILL CONTINUE TO MONITOR.
[2018-01-03 21:35] VITALS: BP 158/71
[2018-01-04 04:52] LABS: ALBUMIN 2.7 g/dL (3.4-5.0); CALCIUM 8.5 mg/dL (8.5-10.1); CREATININE 0.6 mg/dL (0.6-1.3); POTASSIUM 4.4 mmol/L (3.5-5.1); TOTAL BILIRUBIN 0.1 mg/dL (<0.1-1.0); TOTAL PROTEIN 5.3 g/dL (6.4-8.2)
[2018-01-04 04:58] LABS: HEMATOCRIT 28.8 % (37.0-47.0); HEMOGLOBIN 9.5 gm/dL (12.0-15.0); MCH 28.3 pg (26.0-34.0); MCHC 32.9 g/dL (28.0-37.0); MPV 8.1 fl. (7.2-11.1); NUCLEATED RBCS 0 /100WBC; PLATELET COUNT* 325 thou/uL (150-400); RBC 3.35 mil/uL (4.20-5.00); RDW-CV 15.9 % (10.5-14.5); WBC 10.8 thou/uL (4.0-11.0)
--- NOTE | 2018-01-04 05:18 | NUR ---
PATIENT IS ALERT AND ORIENTED. VITALS STABLE. UP WITH SBA TO BSC, NONCOMPLIANT WITH CALL LIGHT. BED ALARM IN USE. VOIDING ADEQUATELY. INCONTIENT OF URINE AND STOOL. PATIENT HAD THREE BOWEL MOVEMENTS DURING MY SHIFT. FLUIDS INFUSING PER PER. NO SIGNS OF ANY ADVERSE REACTIONS TO ANTIBIOTIC THERAPY. TYLENOL GIVEN FOR A HEADACHE. REPOSITIONED EVERY TWO HOURS. PLANS TO DISCHARGE HOME TODAY. HOURLY ROUNDS. NURSING WILL CONTINUE TO MONITOR.
[2018-01-04 06:03] LABS: ABSOLUTE EOSINOPHILS 0.2 thou/uL (0.0-0.7); ABSOLUTE LYMPHOCYTES 5.3 thou/uL (0.8-5.3); ABSOLUTE MONOCYTES 0.3 thou/uL (0.0-1.2); ANISOCYTOSIS 1+; PLATELET ESTIMATE ADEQUATE; POIKILOCYTOSIS 1+
[2018-01-04 07:15] VITALS: BP 144/64
[2018-01-04] MEDS ORDERED: CIPRO500 MG PO (09:07)
[2018-01-04 09:08] VITALS: BP 144/64
--- NOTE | 2018-01-04 10:31 | NUR ---
PATIENT DISCHARGED VIA [facility] TO HOME. REFUSED HOME HEALTH. SCRIPT FOR DENIS CALLED INTO [facility]. IV REMOVED. CLOTHES PROVIDED TO PATIENT SHE DID NOT HAVE ANY. BELONGINGS SENT. PATIENT VERBALIZES UNDERSTANDING OF DC INSTRUCTIONS. PATIENT UNABLE TO GET AHOLD OF FAMILY OR FRIEND PRIOR TO DC. PATIENT VERY HAPPY TO GO HOME.
== END 2018-01-04 10:30 | disposition home or self-care (01) | DRG 372 ==
LOC: M.ERS 12:46 → M.TBA-ER 14:57 → M.2W 14:57 → M.ORTHSURG 12-30 22:24
PROVIDERS: Family Medicine; ADMIT Internal Medicine
DX: A04.72 Enterocolitis due to Clostridium difficile, not specified as recurrent (principal); R65.10 Systemic inflammatory response syndrome (SIRS) of non-infectious origin without acute organ dysfunction; N39.0 Urinary tract infection, site not specified; N20.2 Calculus of kidney with calculus of ureter; E11.9 Type 2 diabetes mellitus without complications; I10 Essential (primary) hypertension; B96.1 Klebsiella pneumoniae [K. pneumoniae] as the cause of diseases classified elsewhere; F31.9 Bipolar disorder, unspecified; F41.9 Anxiety disorder, unspecified; E86.0 Dehydration; G89.29 Other chronic pain; K59.00 Constipation, unspecified; G31.9 Degenerative disease of nervous system, unspecified; R41.89 Other symptoms and signs involving cognitive functions and awareness; Z91.041 Radiographic dye allergy status; Z79.899 Other long term (current) drug therapy; Z85.07 Personal history of malignant neoplasm of pancreas; Z90.710 Acquired absence of both cervix and uterus; Z82.49 Family history of ischemic heart disease and other diseases of the circulatory system

== ENCOUNTER 2018-01-10 08:43 | Emergency (ER) | payer MEDICARE, OTHER ==
[~2018-01-10] VITALS: Ht 152.4 cm; Wt 68.0 kg
[2018-01-10 11:13] LABS: MCH 27.2 pg (26.0-34.0)
[2018-01-10 11:19] LABS: ABSOLUTE BASOPHILS 0.2 thou/uL (0.0-0.2); ABSOLUTE MONOCYTES 0.9 thou/uL (0.0-1.2); ABSOLUTE NEUTROPHILS 12.6 thou/uL (1.6-8.1); BASOPHILS 1.3 %; EOSINOPHILS 0.1 %; HEMATOCRIT 36.2 % (37.0-47.0); HEMOGLOBIN 11.5 gm/dL (12.0-15.0); LYMPHOCYTES 18.1 %; MCHC 31.8 g/dL (28.0-37.0); MCV 85.8 fL (80.0-100.0); MONOCYTES 5.5 %; MPV 7.3 fl. (7.2-11.1); NUCLEATED RBCS 0 /100WBC; PLATELET COUNT* 351 thou/uL (150-400); RBC 4.22 mil/uL (4.20-5.00); RDW-CV 15.7 % (10.5-14.5); WBC 16.7 thou/uL (4.0-11.0)
[2018-01-10 11:23] LABS: ANION GAP 11 mmol/L (7-16); BUN 10 mg/dL (7-18); CHLORIDE 105 mmol/L (98-107); CO2 28 mmol/L (21-32); CREATININE 0.8 mg/dL (0.6-1.3); GLUCOSE 125 mg/dL (70-99); POTASSIUM 3.3 mmol/L (3.5-5.1); SODIUM 144 mmol/L (136-145)
[2018-01-10 11:29] LABS: ALBUMIN 3.4 g/dL (3.4-5.0); ALKALINE PHOSPHATASE 95 U/L (46-116); LIPASE 34 U/L (73-393); SGOT 9 U/L (15-37); SGPT 12 U/L (30-65); TOTAL BILIRUBIN 0.4 mg/dL (<0.1-1.0); TROPONIN-I LEVEL <0.06 ng/mL (<0.06)
[2018-01-10 12:36] VITALS: BP 200/53
--- NOTE | 2018-01-10 16:01 | EKG ---
[place] [address] ELECTROCARDIOGRAM REPORT Name: BROOK DIANA Room: [facility]#: [id number] Admission: 01/10/18 Attend Phys: Discharge: 01/10/18 Date of : 44 Report #: [id number] THIS REPORT FOR: //name// [facility] Test Date: 2018-01-10 Test Time: 09:07:35 Pat Name: BROOK DIANA Department: Room: Gender: F [employer] Librarian: MENDOZA : 1940 Requested By: Camilo Herrera Order Number: [id number] MD: Earl Yin Measurements Intervals [place] Rate: 61 P: 11 FL: 170 QRS: -6 QRSD: 121 T: 82 QT: 476 QTc: 480 Interpretive Statements Sinus rhythm LVH with IVCD and secondary repol abnrm Borderline prolonged QT interval Compared to ECG 12/29/2017 12:52:16 Intraventricular conduction delay now present Early repolarization now present T-wave abnormality no longer present Electronically Signed On 01-10-2018 16:01:03 CDT by Earl Yin [email or web address] <ELECTRONICALLY SIGNED> By: Earl Yin MD, [facility] 01/10/18 [id number] [id number] Earl Yin MD, [facility] /EPI
== END 2018-01-10 12:38 | disposition home or self-care (01) ==
LOC: M.ERS 08:43
PROVIDERS: Emergency Medicine Emergency Medical Services
DX: R19.7 Diarrhea, unspecified (principal); R10.84 Generalized abdominal pain; E11.9 Type 2 diabetes mellitus without complications; I10 Essential (primary) hypertension; Z90.710 Acquired absence of both cervix and uterus; Z85.07 Personal history of malignant neoplasm of pancreas; Z88.8 Allergy status to other drugs, medicaments and biological substances; Z88.1 Allergy status to other antibiotic agents; Z91.041 Radiographic dye allergy status; Z79.4 Long term (current) use of insulin